=== PATIENT | female | born 1945 | race Caucasian/White ===

== ENCOUNTER 2023-05-30 16:02 | Emergency (ER) | payer OTHER, SELFPAY ==
[2023-05-30 16:11] VITALS: BP 166/63; PULSE 62; RESP 16; TEMP 37; O2SAT 97
--- NOTE | 2023-05-30 16:33 | ED.FALL ---
HPI - Fall General Chief Complaint: Fall/Minor Trauma Stated Complaint: fall, head lac Time Seen by Provider: 05/30/23 16:03 History of Present Illness HPI Narrative: This 77-year-old female comes in with a laceration to her right occipital region. She stood up without her walker and lost her balance and fell onto her right side. She did bump her head and her right hip. She did not have loss of consciousness. She does not describe any headache. She was able to get up with assistance. She has a 2 cm linear laceration in in the right occipital region. She does not have any neck pain. She has some mild discomfort in her right hip region but has full range of motion. Related Data Home Medications Medication Instructions Recorded Confirmed acetaminophen 325 mg tablet 650 mg PO BID 05/30/23 05/30/23 (Tylenol) ascorbic acid (vitamin C) 500 mg 1,000 mg PO BID 05/30/23 05/30/23 capsule aspirin 81 mg tablet,delayed 81 mg PO BID 05/30/23 05/30/23 release (Adult Aspirin Regimen) atorvastatin 80 mg tablet 80 mg PO DAILY 05/30/23 05/30/23 cholecalciferol (vitamin D3) 25 25 mcg PO DAILY 05/30/23 05/30/23 mcg (1,000 unit) capsule folic acid 1 mg tablet 1,000 mcg PO DAILY 05/30/23 05/30/23 hydroxychloroquine 200 mg tablet 200 mg PO DAILY 05/30/23 05/30/23 levothyroxine 88 mcg tablet 88 mcg PO DAILY 05/30/23 05/30/23 (Euthyrox) lisinopril 2.5 mg tablet 2.5 mg PO DAILY 05/30/23 05/30/23 methotrexate 2.5 mg/mL oral 15 mg PO DAILY 05/30/23 05/30/23 solution metoprolol succinate 25 mg capsule 25 mg PO DAILY 05/30/23 05/30/23 sprinkle, ext. release 24 hr ([place]spargo Sprinkle) nitroglycerin 0.4 mg sublingual 0.4 mg sublingual Q5-15M PRN 05/30/23 05/30/23 tablet nystatin 100,000 unit/gram topical 1 applic topical DAILY 05/30/23 05/30/23 powder ([facility]) oxybutynin chloride 15 mg 15 mg PO DAILY 05/30/23 05/30/23 tablet,extended release 24 hr pantoprazole 40 mg tablet,delayed 40 mg PO DAILY 05/30/23 05/30/23 release prednisone 2.5 mg tablet 2.5 mg PO DAILY 05/30/23 05/30/23 Allergies Allergy/AdvReac Type Severity Reaction Status Date / Time amoxicillin Allergy Unknown Verified 05/30/23 16:11 Review of Systems Status of ROS: Reports: 10 or more systems reviewed and unremarkable except as noted in History and below Narrative: Constitutional: No fevers, no weight gain or loss. Eyes: No discharge. No vision changes. HENT: No congestion, no sore throat, no ear pain. Cardiovascular: No chest pain, no palpitations. Respiratory: No shortness of breath, no wheezes, no cough. Gastrointestinal: No abdominal pain, no vomiting, no diarrhea. Genitourinary: No dysuria, no hematuria. Musculoskeletal: Normal range of motion. Skin: No rashes, no pruritis. Neurological: No dizziness, weakness, sensory change, speech change. Endo/Heme/Allergies: No bruising or bleeding. No polydipsia. Pysch: no suicidality, no anxiety, no insomnia. All other systems reviewed and are negative. PFSH PFS Social History Smoking Status: Never smoker Do you use any of these nicotine containing products: None Second hand tobacco smoke exposure: No How often do you have a drink containing alcohol: never How often do you have six or more drinks on one occasion: Never AUDIT-C Alcohol total score: 0 Non-prescribed substance use: denies use service: No Exam Narrative: Exam Narrative: Constitutional: Well-developed, well-nourished, no acute distress. HEENT: 2 cm linear laceration in the right occipital region of her scalp. There is no underlying hematoma. Neck: Normal range of motion. Nontender. Supple. No midline tenderness when palpating along the spine. Heart: Intact distal pulses. Lungs: No chest discomfort. No wheezes, rhonchi, or rales. Abdomen: Nontender. Back: Normal range of motion. Extremities: Normal range of motion. No injury. Skin: Intact. No rash. Warm. No erythema or pallor. Neurologic: No altered sensation. No weakness. Alert and oriented. Psychiatric: No suicidality. No anxiety or depression. No insomnia. Nursing notes and vitals signs are reviewed. Const: Vital Signs, click to edit/add: Vital Signs - 24 hr 05/30/23 16:11 Temperature 98.6 F Pulse Rate [Pulse Oximeter] 62 Respiratory Rate 16 Blood Pressure [Ri ght Upper Arm] 166/63 H Pulse Oximetry 97 Oxygen Delivery Me thod Room Air Course Vital Signs Vital signs: Initial Vital Signs Temperature 98.6 F 05/30/23 16:11 Temperature Source Temporal Artery Scan 05/30/23 16:11 Pulse Rate 62 05/30/23 16:11 Respiratory Rate 16 05/30/23 16:11 Blood Pressure 166/63 H 05/30/23 16:11 Blood Pressure Mean 97 05/30/23 16:11 Blood Pressure Position Supine 05/30/23 16:11 Pulse Oximetry 97 05/30/23 16:11 Oxygen Delivery Method Room Air 05/30/23 16:11 Vital Signs Temperature 98.6 F 05/30/23 16:11 Pulse Rate 62 05/30/23 16:11 Respiratory Rate 16 05/30/23 16:11 Blood Pressure 166/63 H 05/30/23 16:11 Pulse Oximetry 97 05/30/23 16:11 Oxygen Delivery Method Room Air 05/30/23 16:11 Temperature 98.6 F 05/30/23 16:11 Pulse Rate 62 05/30/23 16:11 Respiratory Rate 16 05/30/23 16:11 Blood Pressure 166/63 H 05/30/23 16:11 Pulse Oximetry 97 05/30/23 16:11 Oxygen Delivery Method Room Air 05/30/23 16:11 MDM - Fall MDM Narrative Medical decision making narrative: This patient comes in with a laceration to her scalp because of a fall. She did not have loss of consciousness. She does not report any headache or neck pain. She has some mild discomfort in her right hip region but is able to ambulate. She does not have any pain when log-rolling her right leg or stressing her pelvis. She is able to raise each leg from the bed without difficulty. I did discuss imaging options with the patient but stated reassurances that she did not have loss of consciousness, has no headache, no vomiting, no neurologic deficit, no distracting injury, and no altered level of consciousness. She declined any imaging at this time. She does have a POLST where she specifies comfort cares only and is DNR DNI. The wound on her scalp was cleansed and explored to its base. It is about 2 cm in length and the skin edges are nicely approximated. I recommended Dermabond repair which was applied with excellent results. Instructions regarding wound care were given. Discharge Plan Discharge Clinical Impression: Laceration of scalp Patient Disposition: Home w/ Parent or Adult Condition: Stable Additional Instructions: Keep wound clean and dry. Okay to wash hair as needed. Increase activity as tolerated. Follow up with MD return if worsening. Prescriptions: No Action ascorbic acid (vitamin C) 500 mg capsule 1,000 mg PO BID acetaminophen [Tylenol] 325 mg tablet 650 mg PO BID aspirin [Adult Aspirin Regimen] 81 mg tablet,delayed release (DR/EC) 81 mg PO BID atorvastatin 80 mg tablet 80 mg PO DAILY folic acid 1 mg tablet 1,000 mcg PO DAILY hydroxychloroquine 200 mg tablet 200 mg PO DAILY levothyroxine [Euthyrox] 88 mcg tablet 88 mcg PO DAILY lisinopril 2.5 mg tablet 2.5 mg PO DAILY methotrexate 2.5 mg/mL solution 15 mg PO DAILY [place]sp[place] Sprinkle 25 mg capsule,sprinkle,ER 24hr 25 mg PO DAILY nitroglycerin 0.4 mg tablet, sublingual 0.4 mg sublingual Q5-15M PRN Rx Instructions: do not exceed 3 doses per episode nystatin [Nyamyc] 100,000 unit/gram powder 1 applic topical DAILY oxybutynin chloride 15 mg tablet extended release 24hr 15 mg PO DAILY pantoprazole 40 mg tablet,delayed release (DR/EC) 40 mg PO DAILY prednisone 2.5 mg tablet 2.5 mg PO DAILY cholecalciferol (vitamin D3) 25 mcg (1,000 unit) capsule 25 mcg PO DAILY Stand Alone Forms: [employer] [facility] Info Instructions
--- NOTE | 2023-05-30 17:49 | ED.NURSE ---
Latanya KRUGER called for report on pt. Update given: no restrictions or changes to patient's current care plan at home.
== END 2023-05-30 17:42 | disposition home or self-care (01) ==
LOC: ED 16:59
PROVIDERS: Emergency Provider Emergency Medicine Emergency Medical Services
DX: S01.01XA Laceration without foreign body of scalp, initial encounter (principal); W01.10XA Fall on same level from slipping, tripping and stumbling with subsequent striking against unspecified object, initial encounter
CPT/HCPCS: 12001; 99283; 99284

== ENCOUNTER 2024-06-18 10:48 | Inpatient (IN) | payer OTHER, SELFPAY ==
[2024-06-18] VITALS (35 sets, daily range): BP systolic 92–127; BP diastolic 43–87; PULSE 57–72; RESP 12–25; TEMP 36.4–37.4; O2SAT 92–919; BMI 22.0; BMI 24.3
--- NOTE | 2024-06-18 11:13 | ED_ITS ---
HPI - Extremity Injury (Lower) General Time Seen by Provider: 11:13 Date Seen: 06/18/24 Chief Complaint: Extremity Pain/Injury, Lower Stated Complaint: Fall Time Seen by Provider: 06/18/24 11:12 Source: patient and RN notes reviewed Mode of arrival: ambulatory Limitations: no limitations History of Present Illness HPI Narrative: Christina is a very pleasant 78-year-old female with history of hyperlipidemia hypothyroidism hypertension who comes to the emergency room for evaluation regarding right hip pain. Christina states she and her were getting ready to go to the [facility] for breakfast. She notes that the shoes that she has are too big and she tripped than them when 1 of them stuck to the floor. She fell onto her right hip and since that time has had a hard time bearing weight. When she is at rest she has minimal discomfort. She has no numbness or tingling distally. She also hit her elbow but she is able to move that without difficulty. Denied hitting her head today. Christina denies any recent illness, cough cold congestion or chest pain. She does not smoke. Alcohol use is occasional. According to records she is on prednisone daily. Related Data Home Medications ?Medication ?Instructions ?Recorded ?Confirmed acetaminophen 325 mg tablet 650 mg PO BID 05/30/23 06/18/24 (Tylenol) ascorbic acid (vitamin C) 500 mg 1,000 mg PO BID 05/30/23 06/18/24 capsule aspirin 81 mg tablet,delayed 81 mg PO BID 05/30/23 06/18/24 release (Adult Aspirin Regimen) atorvastatin 80 mg tablet 80 mg PO DAILY 05/30/23 06/18/24 cholecalciferol (vitamin D3) 25 25 mcg PO DAILY 05/30/23 06/18/24 mcg (1,000 unit) capsule folic acid 1 mg tablet 2 mg PO DAILY 05/30/23 06/18/24 hydroxychloroquine 200 mg tablet 200 mg PO DAILY 05/30/23 06/18/24 levothyroxine 88 mcg tablet 88 mcg PO DAILY 05/30/23 06/18/24 (Euthyrox) lisinopril 2.5 mg tablet 2.5 mg PO DAILY 05/30/23 06/18/24 nitroglycerin 0.4 mg sublingual 0.4 mg sublingual Q5-15M PRN 05/30/23 06/18/24 tablet nystatin 100,000 unit/gram topical 1 applic topical BID PRN 05/30/23 06/18/24 powder ([facility]) oxybutynin chloride 15 mg 15 mg PO DAILY 05/30/23 06/18/24 tablet,extended release 24 hr pantoprazole 40 mg tablet,delayed 40 mg PO DAILY 05/30/23 06/18/24 release prednisone 2.5 mg tablet 2.5 mg PO DAILY 05/30/23 06/18/24 alendronate 70 mg tablet 70 mg PO .Friday06/18/24 06/18/24 methotrexate sodium 2.5 mg tablet 15 mg PO .Friday06/18/24 06/18/24 metoprolol succinate 25 mg 12.5 mg PO DAILY 06/18/24 06/18/24 tablet,extended release 24 hr Allergies Allergy/AdvReac Type Severity Reaction Status Date / Time amoxicillin Allergy Unknown Verified 05/30/23 16:11 Review of Systems Status of ROS: Reports: 10 or more systems reviewed and unremarkable except as noted in History and below Const: Denies: fever or chills Eyes: Denies: change in vision ENMT: Denies: throat pain, neck pain or nasal congestion Cardio: Denies: chest pain, palpitations, edema, swelling of feet/ankles, lightheadedness or shortness of breath with exertion Resp: Denies: shortness of breath or cough GI: Denies: abdominal pain, nausea or vomiting : Denies: painful urination Musculo: Reports: extremity pain (Right hip); Denies: back pain, neck pain or extremity swelling Neuro: Denies: headache PFSH PFSH Medical History Closed fracture of left femur ?S72.92XA - Unspecified fracture of left femur, initial encounter for closed fracture (ICD-10) Incontinence ?R32 - Unspecified urinary incontinence (ICD-10) Primary hypothyroidism ?E03.9 - Hypothyroidism, unspecified (ICD-10) Hyperlipidemia ?E78.5 - Hyperlipidemia, unspecified (ICD-10) Essential hypertension ?I10 - Essential (primary) hypertension (ICD-10) Seronegative rheumatoid arthritis ?M06.00 - Rheumatoid arthritis without rheumatoid factor, unspecified site (ICD-10) Coronary artery disease ?I25.10 - Atherosclerotic heart disease of [place] coronary artery without angina pectoris (ICD-10) Gastroesophageal reflux disease ?K21.9 - Gastro-esophageal reflux disease without esophagitis (ICD-10) Surgical History History of appendectomy ?Z90.49 - Acquired absence of other specified parts of digestive tract (ICD- 10) History of carpal tunnel surgery of left wrist ?Z98.890 - Other specified postprocedural states (ICD-10) History of vaginal hysterectomy ?Z90.710 - Acquired absence of both cervix and uterus (ICD-10) History of coronary artery stent placement ?Z95.5 - Presence of coronary angioplasty implant and graft (ICD-10) Family History Mother Colon cancer Father Heart disease Social History What is your current living situation?: I presently have a place to live Problems where you live: no known problems Problems where you live details: na In the past 12 months, utilities in danger of being shut off: no In past 12 months, lack of transportation kept you from medical appts, meetings, work, or getting things needed for daily living: no In the past 12 mos, have been you worried that your food would run out before you had money to buy more?: often true In the past 12 mos, the food you bought just didn't last and you didn't have money to buy more?: often true Highest level of school completed/degree received: 12th grade, no diploma Smoking Status: Never smoker Do you use any of these nicotine containing products: None Second hand tobacco smoke exposure: No How often do you have a drink containing alcohol: monthly or less How often do you have six or more drinks on one occasion: Never AUDIT-C Alcohol total score: 1 Non-prescribed substance use: denies use Caffeine: No How often does anyone, including family, friends and others, physically hurt you : never How often does anyone, including family, friends and others, insult or talk down to you: never How often does anyone, including family, friends and others, threaten you with harm: never How often does anyone, including family, friends and others, scream or curse at you: never service: No Exam Narrative: Exam Narrative: Alert and oriented. No acute distress. Very pleasant. Appropriate mentation. EOM is full. Face symmetrical. Head is atraumatic normocephalic. Tongue is midline with moist lips. Neck is supple. No midline tenderness. Range of motion full. Heart with regular rate and rhythm. Lungs are clear bilaterally. Abdomen soft nontender. Pelvis is stable. Patient has tenderness noted over the greater trochanter and upper thigh on the right. I do not note any ecchymosis or skin changes. She is able to move her leg distally. Her ankles are without swelling. Good pedal pulses. Her right elbow shows a superficial abrasion that is hemostatic. Full range of motion with flexion, extension, supination, pronation without difficulty. Const: Vital Signs, click to edit/add: Vital Signs - 24 hr 06/18/24 10:54 06/18/24 11:32 06/18/24 11:33 Temperature 98.5 F Pulse Rate 62 64 Pulse Rate [Pulse Oximeter] 59 L Respiratory Rate 20 14 Blood Pressure 101/63 Blood Pressure [Ri ght Upper Arm] 127/66 Pulse Oximetry 94 93 95 Oxygen Delivery Me thod Room Air Room Air 06/18/24 11:56 06/18/24 12:00 06/18/24 12:02 Temperature Pulse Rate 72 65 60 Pulse Rate [Pulse Oximeter] Respiratory Rate 16 Blood Pressure 106/87 Blood Pressure [Ri ght Upper Arm] Pulse Oximetry 95 94 Oxygen Delivery Me thod Room Air 06/18/24 12:25 06/18/24 12:30 06/18/24 12:32 Temperature Pulse Rate 60 57 L 60 Pulse Rate [Pulse Oximeter] Respiratory Rate 14 Blood Pressure 106/79 Blood Pressure [Ri ght Upper Arm] Pulse Oximetry 93 98 95 Oxygen Delivery Me thod Room Air 06/18/24 12:45 06/18/24 13:00 06/18/24 13:05 Temperature Pulse Rate 64 69 66 Pulse Rate [Pulse Oximeter] Respiratory Rate Blood Pressure Blood Pressure [Ri ght Upper Arm] Pulse Oximetry 94 95 Oxygen Delivery Me thod 06/18/24 13:23 Temperature Pulse Rate 72 Pulse Rate [Pulse Oximeter] Respiratory Rate 14 Blood Pressure 104/65 Blood Pressure [Ri ght Upper Arm] Pulse Oximetry 919 H Oxygen Delivery Me thod Room Air Documenting provider has reviewed patient's vital signs: yes Course Course ED Course: At this time Christina presents after a fall. No evidence of head or neck injury. There were no prodromal symptoms to this event. Will obtain x-rays of the pelvis right hip and right femur. Reevaluation(s) Reevaluation #1: Patient continues to do well. Unfortunately x-ray by my read shows a right femoral neck fracture. Will add chest x-ray and labs to include CBC and comprehensive on to orders. Also adding anEKG. Reevaluation #2: I did speak with Rand AVILA with Ortho so that they are aware of this patient. Vital Signs Vital signs: Initial Vital Signs Temperature 98.5 F 06/18/24 10:54 Temperature Source Oral 06/18/24 10:54 Pulse Rate 59 L 06/18/24 10:54 Pulse Rhythm Regular 06/18/24 10:54 Respiratory Rate 20 06/18/24 10:54 Blood Pressure 127/66 06/18/24 10:54 Blood Pressure Mean 86 06/18/24 10:54 Blood Pressure Position Supine 06/18/24 10:54 Pulse Oximetry 94 06/18/24 10:54 Oxygen Delivery Method Room Air 06/18/24 10:54 Vital Signs Temperature 98.5 F 06/18/24 10:54 Pulse Rate 59 L 06/18/24 10:54 Respiratory Rate 20 06/18/24 10:54 Blood Pressure 127/66 06/18/24 10:54 Pulse Oximetry 94 06/18/24 10:54 Oxygen Delivery Method Room Air 06/18/24 10:54 Temperature 99.3 F 06/18/24 15:00 Pulse Rate 69 06/18/24 15:00 Respiratory Rate 18 06/18/24 15:00 Blood Pressure 113/56 L 06/18/24 15:00 Pulse Oximetry 96 06/18/24 15:00 Oxygen Delivery Method Room Air 06/18/24 15:00 Medications Administered Medications: Generic Name Dose Route Start Last Admin Trade Name Freq PRN Reason Stop Dose Admin Sodium Chloride 1,000 mls @ 75 mls/hr 06/18/24 13:44 06/18/24 14:20 0.9 % Sodium Chloride 1000 Ml IV 75 mls/hr .[id number] FERMIN Administration Potassium Chloride 10 meq/ 106 mls @ 106 mls/hr 06/18/24 14:30 06/18/24 15:39 Lidocaine HCl 1 ml/ Dextrose IVPB 06/18/24 16:59 106 mls/hr Q90M FERMIN Administration Discontinued Medications Generic Name Dose Route Start Last Admin Trade Name Pritesh PRN Reason Stop Dose Admin Hydrocortisone Sodium Succinate 100 mg 06/18/24 14:30 06/18/24 14:21 Hydrocortisone Sod Succinate 50 Mg/Ml Inj IVP 06/18/24 14:31 100 mg ONCE ONE Administration MDM - Extremity Injury (Lower) MDM Narrative Medical decision making narrative: 1. Fall -no prodromal symptoms. No evidence of head injury or neck pain. No loss of consciousness. 2. Right hip fracture-femoral neck fracture noted on x-ray. Pelvis and femur otherwise without injury. Will admit patient for orthopedic consult. No pain medication required at this time. 3. Chronic steroid use-patient noted to use prednisone 2.5 mg daily. 4. Disposition-admit to the floor under the care of Addendum: EKG shows sinus rhythm but there are T-wave inversions in the inferior lateral leads. Patient does have history of cardiac disease in the past with stent placement. We do not have any previous EKGs for comparison. Patient denies any chest pain. Have added troponin on to previous labs. Addendum: Troponin negative. Medical Records Attestation: I reviewed the patient's medical records. Lab Data Attestation: I reviewed the patient's lab results. Labs: Lab Results 06/18/24 06/18/24 Range/Units 12:30 12:53 WBC 13.90 H (4.50-11.00) K/uL RBC 3.65 L (4.00-5.20) m/uL Hgb 12.1 (12.0-16.0) gm/dL Hct 37.6 (33.0-51.0) % MCV 103 H (80-100) fL MCH 33 (26-34) pg MCHC 32 (32-36) gm/dL RDW Coeff of Latonya 14.3 (11.5-15.5) % Plt Count 151 (140-440) K/uL Neut % (Auto) 90.3 H (42.0-72.0) % Lymph % (Auto) 6.0 L (20-44) % [place] % (Auto) 3.2 (0.0-11.0) % Eos % (Auto) 0.2 (0.0-7.0) % Baso % (Auto) 0.1 (0.0-3.0) % Neut # (Auto) 12.60 H (1.7-7.0) K/uL Lymph # (Auto) 0.80 L (0.90-2.90) K/uL [place] # (Auto) 0.40 (0.00-0.90) K/UL Eos # (Auto) 0.00 (0.00-0.50) K/uL Baso # (Auto) 0.00 (0.00-0.30) K/uL Abs Immat Gran (auto) 0.00 (0.00-0.30) K/uL Imm/Tot Granulo (auto) 0.2 % Sodium 137 (135-149) mmol/L Potassium 3.2 L (3.6-5.1) mmol/L Chloride 102 (96-114) mmol/L Carbon Dioxide 30 (20-32) mmol/L Anion Gap 5 L (7-15) mEq/L BUN 20 (7-30) mg/dL Creatinine 0.6 (0.5-1.5) mg/dL Estimated Creat Clear 38.75 Estimated GFR 91 ml/min Glucose 113 (60-115) mg/dL Calcium 9.1 (8.4-10.6) mg/dL Troponin I < 0.01 L (0.01-0.04) ng/mL Lab Acknowledgement Test Added Imaging Data Femur x-ray: Attestation: I have reviewed the pertinent imaging results. My impression: Obvious fracture of the femoral neck. Radiologist's impression: There is a transcervical type fracture of the right femoral neck with approximately 12 mm of displacement and proximal migration of the distal fracture fragment along with ventral apex angulation of fracture fragments. No additional evidence of fracture. Degenerative changes of the right hip. No radiopaque foreign body evident in the soft tissues. IMPRESSION: Displaced fracture of the right femoral neck. Pelvis x-ray: Attestation: I have reviewed the pertinent imaging results. My impression: I do not note any acute pelvic fractures. Radiologist's impression: Displaced transcervical type fracture of the right femoral neck is again demonstrated. No additional evidence of fracture. Left hip arthroplasty as imaged appears intact. Degenerative changes of the visualized lumbar spine. Right hip degenerative changes. Apparent bone demineralization. Vascular calcifications. Soft tissues as imaged are otherwise unremarkable. IMPRESSION: Displaced right femoral neck fracture. Right hip x-ray: Attestation: I have reviewed the pertinent imaging results. My impression: Right hip fracture Radiologist's impression: INDINGS: There is a transcervical type fracture of the right femoral neck with approximately 12 mm of displacement and proximal migration of the distal fracture fragment along with ventral apex angulation of fracture fragments. No additional evidence of fracture. Degenerative changes of the right hip. No radiopaque foreign body evident in the soft tissues. IMPRESSION: Displaced fracture of the right femoral neck. ECG Data Attestation: I personally reviewed and interpreted this ECG as follows: ECG interpretation date: 06/18/24 Interpretation: EKG by my read shows sinus rhythm. Flipped T-waves throughout most of the EKG. However normal QT and AK intervals. Discharge Plan Discharge Clinical Impression: Closed right hip fracture Patient Disposition: Admitted As Observation Condition: Improved
--- NOTE | 2024-06-18 11:19 | CRLHL7_ITS ---
For Patients: As a result of the Cures Act, medical imaging exams and procedure reports are released immediately into your electronic medical record. You may view this report before your referring provider. If you have questions, please contact your health care provider. INDICATION: Fall with right hip pain. TECHNIQUE: Pelvis one view. COMPARISON: Right femur same day. FINDINGS: Displaced transcervical type fracture of the right femoral neck is again demonstrated. No additional evidence of fracture. Left hip arthroplasty as imaged appears intact. Degenerative changes of the visualized lumbar spine. Right hip degenerative changes. Apparent bone demineralization. Vascular calcifications. Soft tissues as imaged are otherwise unremarkable. IMPRESSION: Displaced right femoral neck fracture. Dictated by Dat Mak MD @ 06/18/2024 12:15:00 PM (Electronically Signed)
--- NOTE | 2024-06-18 11:19 | CRLHL7_ITS ---
For Patients: As a result of the Cures Act, medical imaging exams and procedure reports are released immediately into your electronic medical record. You may view this report before your referring provider. If you have questions, please contact your health care provider. INDICATION: Fall. Pain. TECHNIQUE: Right femur four views. COMPARISON: None. FINDINGS: There is a transcervical type fracture of the right femoral neck with approximately 12 mm of displacement and proximal migration of the distal fracture fragment along with ventral apex angulation of fracture fragments. No additional evidence of fracture. Degenerative changes of the right hip. No radiopaque foreign body evident in the soft tissues. IMPRESSION: Displaced fracture of the right femoral neck. Dictated by Dat Mak MD @ 06/18/2024 12:13:18 PM (Electronically Signed)
--- NOTE | 2024-06-18 12:07 | CRLHL7_ITS ---
For Patients: As a result of the Cures Act, medical imaging exams and procedure reports are released immediately into your electronic medical record. You may view this report before your referring provider. If you have questions, please contact your health care provider. INDICATION: : Hip fracture COMPARISON: None TECHNIQUE: One view(s) of the chest FINDINGS: The cardiomediastinal silhouette and pulmonary vasculature are unremarkable. There is no focal airspace consolidation, pleural effusion, or pneumothorax. No displaced fractures. Dextroscoliotic curvature of the thoracic spine. IMPRESSION: No acute cardiopulmonary process or acute traumatic injury. Dictated by Anthony Cobb MD @ 06/18/2024 12:26:09 PM (Electronically Signed)
--- NOTE | 2024-06-18 12:29 | ED.NURSE ---
Spoke with RN at [facility], update given to RN on pt status. She states understanding.
[2024-06-18 12:38] LABS: Basophils Percent Auto 0.1 % (0.0-3.0); Eosinophils Percent Auto 0.2 % (0.0-7.0); Hematocrit 37.6 % (33.0-51.0); Hemoglobin* 12.1 gm/dL (12.0-16.0); Immature Granulocytes Pct Auto 0.2 %; Mean Corpuscular HGB Conc 32 gm/dL (32-36); Mean Corpuscular Hemoglobin 33 pg (26-34); Mean Corpuscular Volume 103 fL (80-100); Monocytes Percent Auto 3.2 % (0.0-11.0); Neutrophils Percent Auto 90.3 % (42.0-72.0); Platelet Count* 151 K/uL (140-440); RDW Coefficient of Variation % 14.3 % (11.5-15.5); Red Blood Count 3.65 m/uL (4.00-5.20)
[2024-06-18 12:44] LABS: Slide Review Reflex No
[2024-06-18 12:53] LABS: Chloride* 102 mmol/L (96-114); Potassium* 3.2 mmol/L (3.6-5.1); Sodium* 137 mmol/L (135-149)
[2024-06-18 12:56] LABS: Anion Gap 5 mEq/L (7-15); Blood Urea Nitrogen* 20 mg/dL (7-30); Carbon Dioxide* 30 mmol/L (20-32); Creatinine* 0.6 mg/dL (0.5-1.5); Est. Creatinine Clearance* 38.75; Estimated Glomerular Filt Rate 91 ml/min
[2024-06-18 12:57] LABS: Calcium* 9.1 mg/dL (8.4-10.6); Glucose* 113 mg/dL (60-115)
[2024-06-18 13:23] LABS: Troponin I* < 0.01 ng/mL (0.01-0.04)
--- NOTE | 2024-06-18 13:53 | PM.IMHP1 ---
Hospitalist- H&P: HPI History of Present Illness Date Seen: 06/18/24 Chief complaint: Right hip pain status post fall from standing Narrative: Christina Eckert is a 78 year old was in her usual state of health until around 8:30 this morning when she fell from the standing state in her home with right hip pain since. Did not strike her head. Did not have loss of consciousness. No bleeding of any sort. Was in her home getting ready to leave the home for breakfast when this happened. In our emergency department an x-ray demonstrated a new displaced right femoral neck fracture. Orthopedic surgeon on-call reviewed and agreed to proceed with surgery later today. Patient does take aspirin 81 mg once daily. She last ate 2 pieces of banana bread shortly before the accident happened around 8:30 this morning. 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 Review of Systems Status of ROS: Reports: 10 or more systems reviewed and unremarkable except as noted in History and below Narrative: Denies chest heaviness, pressure, tightness, or pain. Denies cough, dyspnea at rest, paroxysmal nocturnal dyspnea, orthopnea, or even dyspnea with exertion. Denies syncope or near-syncope. Denies orthostasis or lightheadedness. Denies nausea or vomiting. Denies dysphagia, odynophagia. Denies diarrhea or constipation. Denies abdominal pain. No fevers, rigors, diaphoresis. No recent travel, other trauma, or blood loss of any sort. Does take her immunosuppressive therapy regularly including prednisone 2 point mg daily, hydroxychloroquine 200 mg daily, and methotrexate 15 mg every Friday once weekly. Denies weight gain or weight loss. No recent illness. Generally happy and content. Designates her , Todd, as her power of clearing inspector for health should that be required. Adamantly requests DNR DNI resuscitation status in the event of cardiopulmonary demise. Primary care physician is Dr. Jacqueline Jack, [facility], [facility]. [facility] Medical History Closed fracture of left femur ?S72.92XA - Unspecified fracture of left femur, initial encounter for closed fracture (ICD-10) Incontinence ?R32 - Unspecified urinary incontinence (ICD-10) Primary hypothyroidism ?E03.9 - Hypothyroidism, unspecified (ICD-10) Hyperlipidemia ?E78.5 - Hyperlipidemia, unspecified (ICD-10) Essential hypertension ?I10 - Essential (primary) hypertension (ICD-10) Seronegative rheumatoid arthritis ?M06.00 - Rheumatoid arthritis without rheumatoid factor, unspecified site (ICD-10) Coronary artery disease ?I25.10 - Atherosclerotic heart disease of [place] coronary artery without angina pectoris (ICD-10) Gastroesophageal reflux disease ?K21.9 - Gastro-esophageal reflux disease without esophagitis (ICD-10) Surgical History History of appendectomy ?Z90.49 - Acquired absence of other specified parts of digestive tract (ICD-10) History of carpal tunnel surgery of left wrist ?Z98.890 - Other specified postprocedural states (ICD-10) History of vaginal hysterectomy ?Z90.710 - Acquired absence of both cervix and uterus (ICD-10) History of coronary artery stent placement ?Z95.5 - Presence of coronary angioplasty implant and graft (ICD-10) Family History Mother Colon cancer Father Heart disease Social History Smoking Status: Never smoker Do you use any of these nicotine containing products: None Second hand tobacco smoke exposure: No How often do you have a drink containing alcohol: monthly or less How often do you have six or more drinks on one occasion: Never AUDIT-C Alcohol total score: 1 Non-prescribed substance use: denies use service: No Meds Home Medications and Allergies Home Medications ?Medication ?Instructions ?Recorded ?Confirmed ?Type acetaminophen 325 mg tablet 650 mg PO BID 05/30/23 06/18/24 History (Tylenol) ascorbic acid (vitamin C) 500 mg 1,000 mg PO BID 05/30/23 06/18/24 History capsule aspirin 81 mg tablet,delayed 81 mg PO BID 05/30/23 06/18/24 History release (Adult Aspirin Regimen) atorvastatin 80 mg tablet 80 mg PO DAILY 05/30/23 06/18/24 History cholecalciferol (vitamin D3) 25 25 mcg PO DAILY 05/30/23 06/18/24 History mcg (1,000 unit) capsule folic acid 1 mg tablet 2 mg PO DAILY 05/30/23 06/18/24 History hydroxychloroquine 200 mg tablet 200 mg PO DAILY 05/30/23 06/18/24 History levothyroxine 88 mcg tablet 88 mcg PO DAILY 05/30/23 06/18/24 History (Euthyrox) lisinopril 2.5 mg tablet 2.5 mg PO DAILY 05/30/23 06/18/24 History nitroglycerin 0.4 mg sublingual 0.4 mg sublingual Q5-15M PRN 05/30/23 06/18/24 History tablet nystatin 100,000 unit/gram topical 1 applic topical BID PRN 05/30/23 06/18/24 History powder (Nyamyc) oxybutynin chloride 15 mg 15 mg PO DAILY 05/30/23 06/18/24 History tablet,extended release 24 hr pantoprazole 40 mg tablet,delayed 40 mg PO DAILY 05/30/23 06/18/24 History release prednisone 2.5 mg tablet 2.5 mg PO DAILY 05/30/23 06/18/24 History alendronate 70 mg tablet 70 mg PO .Friday06/18/24 06/18/24 History methotrexate sodium 2.5 mg tablet 15 mg PO .Friday06/18/24 06/18/24 History metoprolol succinate 25 mg 12.5 mg PO DAILY 06/18/24 06/18/24 History tablet,extended release 24 hr Allergies Allergy/AdvReac Type Severity Reaction Status Date / Time amoxicillin Allergy Unknown Verified 05/30/23 16:11 Exam Narrative: Exam Narrative: Examined patient in the emergency department. She is laying on the exam table and appears comfortable when she is laying still. Vision and hearing are adequate. Alert and oriented x4. Friendly, articulate, cooperative. External auditory canals and tympanic membranes are normal. Midline nasal septum. Dentition in poor weak pair. Moist buccal mucosa. Conjugate gaze. Pupils equally round and reactive to light and accommodation. Midline trachea. Normal thyroid. No JVD or hepatojugular reflux. Head neck lymph nodes are negative to palpation. Lungs are clear to auscultation without wheezing, rhonchi, or rales. No CVA tenderness to thumping of her back. Heart tones with regular rhythm, normal S1-S2. Grade 2/6 low-pitched systolic murmur left lower sternal border. PMI not laterally displaced. Abdomen is thin with active bowel sounds, soft, nontender. No rebound or guarding. Right lower extremity is about a cm to 2 cm shorter than the left. No edema. Capillary refill less than 3 seconds in upper and lower extremities. No focal motor neurologic deficits. Const: Vital Signs, click to edit/add: Vital Signs - 24 hr 06/18/24 10:54 06/18/24 11:32 06/18/24 11:33 Temperature 98.5 F Pulse Rate 62 64 Pulse Rate [Pulse Oximeter] 59 L Respiratory Rate 20 14 Blood Pressure 101/63 Blood Pressure [Ri ght Upper Arm] 127/66 Pulse Oximetry 94 93 95 Oxygen Delivery Me thod Room Air Room Air 06/18/24 11:56 06/18/24 12:00 06/18/24 12:02 Temperature Pulse Rate 72 65 60 Pulse Rate [Pulse Oximeter] Respiratory Rate 16 Blood Pressure 106/87 Blood Pressure [Ri ght Upper Arm] Pulse Oximetry 95 94 Oxygen Delivery Me thod Room Air 06/18/24 12:25 06/18/24 12:30 06/18/24 12:32 Temperature Pulse Rate 60 57 L 60 Pulse Rate [Pulse Oximeter] Respiratory Rate 14 Blood Pressure 106/79 Blood Pressure [Ri ght Upper Arm] Pulse Oximetry 93 98 95 Oxygen Delivery Me thod Room Air 06/18/24 12:45 06/18/24 13:00 06/18/24 13:05 Temperature Pulse Rate 64 69 66 Pulse Rate [Pulse Oximeter] Respiratory Rate Blood Pressure Blood Pressure [Ri ght Upper Arm] Pulse Oximetry 94 95 Oxygen Delivery Me thod 06/18/24 13:23 Temperature Pulse Rate 72 Pulse Rate [Pulse Oximeter] Respiratory Rate 14 Blood Pressure 104/65 Blood Pressure [Ri ght Upper Arm] Pulse Oximetry 919 H Oxygen Delivery Me thod Room Air Hospitalist - H&P: Result Labs Labs: Short CBC 06/18/24 Range/Units 12:30 WBC 13.90 H (4.50-11.00) K/uL Hgb 12.1 (12.0-16.0) gm/dL Hct 37.6 (33.0-51.0) % Plt Count 151 (140-440) K/uL BMP 06/18/24 12:30 Sodium 137 Potassium 3.2 L Chloride 102 Carbon Dioxide 30 BUN 20 Creatinine 0.6 Glucose 113 Calcium 9.1 Cardiac Enzymes 06/18/24 Range/Units 12:30 Troponin I < 0.01 L (0.01-0.04) ng/mL ECG Attestation: I personally reviewed and interpreted this ECG as follows: ECG interpretation date: 06/18/24 Interpretation: Normal sinus rhythm. Nonspecific T-wave abnormalities. Imaging Chest x-ray: Attestation: I have reviewed the pertinent imaging results. Radiologist's impression: No acute cardiopulmonary processes noted. Pelvic x-ray: Attestation: I have reviewed the pertinent imaging results. Radiologist's impression: Displaced right femoral neck fracture Right hip x-ray: Radiologist's impression: Displaced right femoral neck fracture Assessment and Plan Assessment and plan (1) Closed right hip fracture: Problem comment: 06/18/2024: Displaced right femoral neck fracture s/p fall from standing state Reviewed with Dr. Meredith, emergency Department, and Rand Funez, physician assistant brand manager for orthopedic surgery. Patient ready for surgical repair when Orthopedic surgery is ready. Status: Acute (2) Seronegative rheumatoid arthritis: Problem comment: 06/18/2024: Single dose of hydrocortisone 100 mg IV. Continue with prednisone 2.5 mg daily. Hold methotrexate. Continue with hydroxychloroquine. Status: Acute (3) Coronary artery disease: Problem comment: h/o AMI and RCA stent 2009 Status: Acute Plan 1. Reviewed impression with patient. 2. Discussed recommendations with patient. 3. Answered patient's questions are satisfaction. 4. Continue with supportive efforts. 5. Patient will proceed to the OR when Orthopedic surgery and anesthesia are ready. 6. NPO with IV fluids and analgesics and antiemetics as needed. Total Time Spent Total Time Spent: 70 minutes
[2024-06-18] MEDS: 0.9 % SODIUM CHLORIDE 1000 ml 1,000 ML 75 ML IV (14:20)
[2024-06-18] MEDS: HYDROCORTISONE SOD SUCCINATE 50 MG/ML inj 100 MG IVP (14:21)
--- NOTE | 2024-06-18 15:09 | PC.NURSE ---
Pt arrived to floor at 1326, alert oriented and vitally stable. Valencia catheter draining effectively.
--- NOTE | 2024-06-18 16:15 | CRLHL7_ITS ---
For Patients: As a result of the Century Cures Act, medical imaging exams and procedure reports are released immediately into your electronic medical record. You may view this report before your referring provider. If you have questions, please contact your health care provider. Indication: Intra op right bipolar hip hemiarthroplasty. Technique: Procedural fluoroscopy. One image saved. Fluoro time: 25.8 seconds. Comparison: Radiographs 06/18/2024. Findings/Impression: Images show placement of a bipolar right hip hemiarthroplasty. Dictated by Jassi You MD @ 06/21/2024 12:17:54 PM (Electronically Signed)
[2024-06-18] MEDS: LACTATED RINGERS 1000 ML 1,000 ML 35 ML IV (16:35)
--- NOTE | 2024-06-18 16:38 | CRLHL7_ITS ---
For Patients: As a result of the Cures Act, medical imaging exams and procedure reports are released immediately into your electronic medical record. You may view this report before your referring provider. If you have questions, please contact your health care provider. INDICATION: Right hip arthroplasty. TECHNIQUE: Pelvis and right hip 2 views. IMPRESSION: Hardware from a right hip arthroplasty is in satisfactory position. Bone alignment is normal. No sign of acute fracture. There are postoperative changes in the soft tissues. Grossly unremarkable left hip arthroplasty. Pelvic phleboliths. Dictated by Wilber Gtz MD @ 06/18/2024 11:21:04 PM (Electronically Signed)
--- NOTE | 2024-06-18 16:46 | P.ORCN_ITS ---
History of Present Illness HPI Date Seen: 06/18/24 Chief complaint: Right hip pain status post fall from standing Narrative: Christina is a pleasant 78 year old female who presents [facility] after a fall from a standing height at home resulting in right hip pain and inability to bear weight. X-rays here at the hospital revealed a right displaced femoral neck fracture. Orthopedics was consulted accordingly. Reportedly no loss of consciousness. Takes aspirin 81 mg once daily. She last ate 2 pieces of banana bread shortly before the accident happened around 8:30 this morning. 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 [facility] Medical History Closed fracture of left femur ?S72.92XA - Unspecified fracture of left femur, initial encounter for closed fracture (ICD-10) Incontinence ?R32 - Unspecified urinary incontinence (ICD-10) Primary hypothyroidism ?E03.9 - Hypothyroidism, unspecified (ICD-10) Hyperlipidemia ?E78.5 - Hyperlipidemia, unspecified (ICD-10) Essential hypertension ?I10 - Essential (primary) hypertension (ICD-10) Seronegative rheumatoid arthritis ?M06.00 - Rheumatoid arthritis without rheumatoid factor, unspecified site (ICD-10) Coronary artery disease ?I25.10 - Atherosclerotic heart disease of [place] coronary artery without angina pectoris (ICD-10) Gastroesophageal reflux disease ?K21.9 - Gastro-esophageal reflux disease without esophagitis (ICD-10) Surgical History History of appendectomy ?Z90.49 - Acquired absence of other specified parts of digestive tract (ICD- 10) History of carpal tunnel surgery of left wrist ?Z98.890 - Other specified postprocedural states (ICD-10) History of vaginal hysterectomy ?Z90.710 - Acquired absence of both cervix and uterus (ICD-10) History of coronary artery stent placement ?Z95.5 - Presence of coronary angioplasty implant and graft (ICD-10) Family History Mother Colon cancer Father Heart disease Social History What is your current living situation?: I presently have a place to live Problems where you live: no known problems Problems where you live details: na In the past 12 months, utilities in danger of being shut off: no In past 12 months, lack of transportation kept you from medical appts, meetings, work, or getting things needed for daily living: no In the past 12 mos, have been you worried that your food would run out before you had money to buy more?: often true In the past 12 mos, the food you bought just didn't last and you didn't have money to buy more?: often true Highest level of school completed/degree received: 12th grade, no diploma Smoking Status: Never smoker Do you use any of these nicotine containing products: None Second hand tobacco smoke exposure: No How often do you have a drink containing alcohol: monthly or less How often do you have six or more drinks on one occasion: Never AUDIT-C Alcohol total score: 1 Non-prescribed substance use: denies use Caffeine: No How often does anyone, including family, friends and others, physically hurt you : never How often does anyone, including family, friends and others, insult or talk down to you: never How often does anyone, including family, friends and others, threaten you with harm: never How often does anyone, including family, friends and others, scream or curse at you: never service: No Meds Home Medications and Allergies Home Medications ?Medication ?Instructions ?Recorded ?Confirmed ?Type acetaminophen 325 mg tablet 650 mg PO BID 05/30/23 06/18/24 History (Tylenol) ascorbic acid (vitamin C) 500 mg 1,000 mg PO BID 05/30/23 06/18/24 History capsule aspirin 81 mg tablet,delayed 81 mg PO BID 05/30/23 06/18/24 History release (Adult Aspirin Regimen) atorvastatin 80 mg tablet 80 mg PO DAILY 05/30/23 06/18/24 History cholecalciferol (vitamin D3) 25 25 mcg PO DAILY 05/30/23 06/18/24 History mcg (1,000 unit) capsule folic acid 1 mg tablet 2 mg PO DAILY 05/30/23 06/18/24 History hydroxychloroquine 200 mg tablet 200 mg PO DAILY 05/30/23 06/18/24 History levothyroxine 88 mcg tablet 88 mcg PO DAILY 05/30/23 06/18/24 History (Euthyrox) lisinopril 2.5 mg tablet 2.5 mg PO DAILY 05/30/23 06/18/24 History nitroglycerin 0.4 mg sublingual 0.4 mg sublingual Q5-15M PRN 05/30/23 06/18/24 History tablet nystatin 100,000 unit/gram topical 1 applic topical BID PRN 05/30/23 06/18/24 History powder (Nyamyc) oxybutynin chloride 15 mg 15 mg PO DAILY 05/30/23 06/18/24 History tablet,extended release 24 hr pantoprazole 40 mg tablet,delayed 40 mg PO DAILY 05/30/23 06/18/24 History release prednisone 2.5 mg tablet 2.5 mg PO DAILY 05/30/23 06/18/24 History alendronate 70 mg tablet 70 mg PO .Friday06/18/24 06/18/24 History methotrexate sodium 2.5 mg tablet 15 mg PO .Friday06/18/24 06/18/24 History metoprolol succinate 25 mg 12.5 mg PO DAILY 06/18/24 06/18/24 History tablet,extended release 24 hr Allergies Allergy/AdvReac Type Severity Reaction Status Date / Time amoxicillin Allergy Unknown Verified 05/30/23 16:11 Ortho Exam Narrative Exam Narrative: She is alert. Resting in the hospital bed supine. Comfortable. Cooperative with the exam. Her daughter is here in the room and augments the history. Right hip shows no lacerations, abrasions, or other cutaneous changes. Tender to palpation around the right lateral hip and pain in the right groin with any hip or knee range of motion. Neurologic intact in the superficial and deep peroneal as well as plantar distribution to sensory light touch and motor function. Palpable DP and PT pulse. Strength and stability about the right hip deferred. Gait and station also deferred. Const Vital Signs, click to edit/add: Vital Signs - 24 hr 06/18/24 10:54 06/18/24 11:32 06/18/24 11:33 Temperature 98.5 F Pulse Rate 62 64 Pulse Rate [Pulse Oximeter] 59 L Respiratory Rate 20 14 Blood Pressure 101/63 Blood Pressure [Left Arm] Blood Pressure [Right Upper Arm] 127/66 Pulse Oximetry 94 93 95 Oxygen Delivery Method Room Air Room Air 06/18/24 11:56 06/18/24 12:00 06/18/24 12:02 Temperature Pulse Rate 72 65 60 Pulse Rate [Pulse Oximeter] Respiratory Rate 16 Blood Pressure 106/87 Blood Pressure [Left Arm] Blood Pressure [Right Upper Arm] Pulse Oximetry 95 94 Oxygen Delivery Method Room Air 06/18/24 12:25 06/18/24 12:30 06/18/24 12:32 Temperature Pulse Rate 60 57 L 60 Pulse Rate [Pulse Oximeter] Respiratory Rate 14 Blood Pressure 106/79 Blood Pressure [Left Arm] Blood Pressure [Right Upper Arm] Pulse Oximetry 93 98 95 Oxygen Delivery Method Room Air 06/18/24 12:45 06/18/24 13:00 06/18/24 13:05 Temperature Pulse Rate 64 69 66 Pulse Rate [Pulse Oximeter] Respiratory Rate Blood Pressure Blood Pressure [Left Arm] Blood Pressure [Right Upper Arm] Pulse Oximetry 94 95 Oxygen Delivery Method 06/18/24 13:23 06/18/24 14:44 06/18/24 14:44 Temperature 98.0 F Pulse Rate 72 Pulse Rate [Pulse Oximeter] Respiratory Rate 14 18 18 Blood Pressure 104/65 Blood Pressure [Left Arm] Blood Pressure [Right Upper Arm] Pulse Oximetry 919 H 96 96 Oxygen Delivery Method Room Air Room Air Room Air 06/18/24 15:00 06/18/24 15:00 Temperature 99.3 F Pulse Rate Pulse Rate [Pulse Oximeter] 69 Respiratory Rate 18 18 Blood Pressure Blood Pressure [Left Arm] 113/56 L Blood Pressure [Right Upper Arm] Pulse Oximetry 96 96 Oxygen Delivery Method Room Air Room Air Results Labs Labs: Laboratory Results - last 48 hr 06/18/24 06/18/24 12:30 12:53 WBC 13.90 H RBC 3.65 L Hgb 12.1 Hct 37.6 MCV 103 H MCH 33 MCHC 32 RDW Coeff of Latonya 14.3 Plt Count 151 Neut % (Auto) 90.3 H Lymph % (Auto) 6.0 L Bates % (Auto) 3.2 Eos % (Auto) 0.2 Baso % (Auto) 0.1 Neut # (Auto) 12.60 H Lymph # (Auto) 0.80 L Bates # (Auto) 0.40 Eos # (Auto) 0.00 Baso # (Auto) 0.00 Abs Immat Gran (auto) 0.00 Imm/Tot Granulo (auto) 0.2 Sodium 137 Potassium 3.2 L Chloride 102 Carbon Dioxide 30 Anion Gap 5 L BUN 20 Creatinine 0.6 Estimated Creat Clear 38.75 Estimated GFR 91 Glucose 113 Calcium 9.1 Troponin I < 0.01 L Lab Acknowledgement Test Added Diagnostic results Additional Comments: AP pelvis as well as AP and lateral views of the right femur from [facility] dated 06/18/2024 were ordered by a different provider and reviewed by me. This demonstrates a displaced right femoral neck fracture in the subcapital region. There is shortening and external rotation to the femur otherwise. Of note, contralateral left side shows a cemented hemiarthroplasty in appropriate position. Assessment and Plan Assessment and plan (1) Closed right hip fracture: Problem comment: 06/18/2024: Displaced right femoral neck fracture s/p fall from standing state Reviewed with Dr. Meredith, emergency Department, and Rand Funez, physician bakery assistant for orthopedic surgery. Patient ready for surgical repair when Orthopedic surgery is ready. Status: Acute Total time spent: Total time spent is greater than 50% in coordination of care (as documented) at patient's floor/unit and/or counseling patient: (2) Seronegative rheumatoid arthritis: Problem comment: 06/18/2024: Single dose of hydrocortisone 100 mg IV. Continue with prednisone 2.5 mg daily. Hold methotrexate. Continue with hydroxychloroquine. Status: Acute Total time spent: Total time spent is greater than 50% in coordination of care (as documented) at patient's floor/unit and/or counseling patient: (3) Coronary artery disease: Problem comment: h/o AMI and RCA stent 2009 Status: Acute Total time spent: Total time spent is greater than 50% in coordination of care (as documented) at patient's floor/unit and/or counseling patient: Plan We had a good discussion today regarding her findings with both the patient and her daughter. I helped him understand the current plate. She is very familiar with this having experienced a similar situation approximately 1.5 years ago at which time she had a left hip hemiarthroplasty performed at an outside facility. Regarding the current right femoral neck fracture that is displaced, I would recommend surgery. Accordingly, we discussed the risks and benefits of both nonoperative and surgical treatment of this major elective surgery. I helped her understand the local risks (e.g. Infection, progression fracture, wound healing) issues as well as systemic risks (e.g. OH, VTE, stroke, ). I believe all questions were answered. I was able to communicate with hospitalist team as well as Anesthesia team and coordinate care. I would anticipate she would be able to weight bear as tolerated following the procedure. We will plan to do a right hip hemiarthroplasty today. We do need to wait, per the Anesthesia recommendations of approximately 8 hours from her last food intake. Therefore, we will plan to do the surgery this afternoon/evening.
[2024-06-18] MEDS: CEFAZOLIN 2 GM in 0.9 % SODIUM CHLORIDE Mini-bag 100 ML IVPB (17:10)
[2024-06-18] MEDS: TRANEXAMIC ACID 100 MG/ML INJ 1000 MG IV (17:25)
--- NOTE | 2024-06-18 17:48 | W.PM.NB ---
Nerve Block Nerve Block Time Seen by Provider: 16:40 Date Seen: 06/18/24 Type of block requested by surgeon for post-operative analgesia: APRIL/LFCN Side: right Time out performed: Yes Verification of patient name: Yes Verification of date of : Yes Site marking: site marked Name of person performing procedure: Petr Vince Continuous monitoring Was continuous monitoring of O2 sat, B/P, case monitor, recorded every 15 minutes?: Yes Procedure Checklist: sterile prep, needles and gloves Ultrasound guided. Images saved: Yes Medications given in 5ml increments after negative aspiration: Ropivicaine %: 0.5 mL: 30 Needle gauge: 21 Decadron (mg): 10 Precedex (mcg): 25 Patient tolerated procedure well: Yes Additional comments: Injected in 5mL increments after negative aspiration Block Charges Block Charge (with Pro Fee): Other Periph Nerve Block Use of Ultrasound Machine for Block: Yes- US Guidance/pain block
--- NOTE | 2024-06-18 18:22 | PC.NURSE ---
(shift 15-193) Pt alert and oriented. Pt?s pain rated a 1. Pt awaiting surgery. Pt brought to surgery at 1630. ?
--- NOTE | 2024-06-18 19:06 | SUR.OPER ---
UPDATED FAMILY PER DR. STERN REQUEST AT 1900.
--- NOTE | 2024-06-18 19:10 | P.ORPRC_ITS ---
Procedure Note Date of procedure: 06/18/24 Procedure: PREOPERATIVE DIAGNOSIS: 1. Right femoral neck fracture, displaced, acute POSTOPERATIVE DIAGNOSIS: 1. Right femoral neck fracture, displaced, acute PROCEDURE: 1. Right hip bipolar hemiarthroplasty, cemented (with 2 super cables due to intraoperative lateral proximal femur/calcar fracture) 2. 53421 - intraoperative fluoroscopy > 1 hour. SURGEON: Chepe Calvo MD. RETAIL MANAGEMENT TRAINEE: Rand Funez PA-C - Of note, a skilled court assistant was critical for this case to aid in patient positioning, tissue retraction, limb manipulation/positioning, and closure. ANESTHESIA: Spinal anesthetic EBL: 300 mL IMPLANTS: DePuy J&J cemented Newton stem (size 3 with a standard neck) +5 mm metal 28 mm inner diameter head and 42 mm outer diameter bipolar head COMPLICATIONS: Intraoperative lateral proximal femur/calcar fracture identified and fixed/stabilized with 2 super cables. INDICATIONS: The patient is a pleasant 78-year-old female who has experienced severe right hip pain and difficulty bearing weight. Workup included x-rays which revealed a displaced right femoral neck fracture. Given the deformity, the dysfunction, and the pain, as well as the failure of nonoperative management, recommendation was made for surgery. FINDINGS: Complete right femoral neck fracture with displacement and expected hemarthrosis. DESCRIPTION OF PROCEDURE: Following a thorough discussion of risks, benefits, and alternatives consent was obtained and the right hip was marked. The patient was brought to the operating room and placed supine on the operating table. Induction of anesthesia was undertaken. 1 g IV Ancef and 1 g tranexamic acid was administered within 1 hr of incision preoperatively. Proper time-out was performed identifying proper patient, site, procedure. The operative extremity was prepped and draped in the appropriate sterile fashion using ChloraPrep after the patient was positioned on the Marfa table with head in neutral alignment and all bony prominences well padded. C-arm fluoroscopic imaging was utilized to confirm proper pelvis rotation and position, and to get true AP films of both the contralateral left, and the affected right hip. This is for comparison. A longitudinal incision was made starting approximately 1 cm distal to the ASIS, and 3-4 cm lateral. The incision was extended distally aiming toward the lateral border the patella. Sharp incision through skin and bovie cautery through the subcutaneous tissue allowed identification of the TFL fascia. This was sharply divided, and the fascia bluntly released from the muscle fibers as we dissected medial. Upon coming to the medial border, we were able to retract the TFL laterally, and penetrated the deeper fascia and identify the crossing circumflex vessels. These were ligated/cauterized. The rectus was elevated from the capsule, and retractors placed laterally and medially along the femoral neck to help with visualization of the capsule. We then performed an inverted T capsulotomy. The capsule was tagged for later repair. Retractors were placed inside the capsule. The femoral neck was visualized after releasing medially down to the lesser trochanter and along the saddle laterally. The femoral neck cut was freshened. The head was removed in a single piece, and sized to 42 mm. Attention was turned to the femoral preparation. The limb was extended, externally rotated, and adducted. The posteromedial capsule was released, as retractors were placed allowing excellent access to the proximal femur. Initially a corrugated box machine operator was followed by canal finder followed by various broaches. We broached sequentially up to the size noted above, found it to have excellent rotational control, and trialing various heads and necks, revealed that appropriate neck offset, and the above noted head size provided the greatest stability, and druze of length, and offset. C-arm fluoroscopic imaging confirmed position of the stem, as well as leg lengths, which were compared with the pre procedure all fluoroscopic images. Of note, during the final trial reduction, it was noted that the proximal femur/calcar had fractured. The calcar had split. The lesser trochanter was still attached to the femoral shaft. It was proximal lateral portion of the femur that had split off. Therefore, we removed the stem, reduced the fracture, applied 2 super cables. 1 was proximal 1 was distal to the lesser trochanter. Excellent stabilization and compression of the fracture could be achieved. It did not over reduce, but rather was proper. The stem was reinserted prior to final tensioning of the super cables. We then completed our cementing preparation with irrigation brush and suction. The cement restrictor was placed and the cement was mixed on the back table. The cement was inserted/filled followed by pressurization. The stem was then inserted and held stable until the cement cured. The real femoral head and bipolar components were opened and inserted. After reducing, the leg was placed through range of motion and stability was confirmed anterior, posterior, and lateral, as well as the fracture stability. Closure of the capsule was performed with #1 PDS. Bleeding was confirmed to be controlled at this stage, and the TFL fascia was closed with #0 strata fix. Subcutaneous, and subcuticular closure was performed with 2-0 Vicryl and 4-0 Monocryl, respectively. Dressings were applied, and the patient was awoken from anesthesia and transferred the PACU in stable condition. A skilled court assistant was critical for this case to aid in patient positioning, tissue retraction, acetabular and proximal femoral exposure, limb manipulation/positioning, dislocation/relocation, patient safety, and closure. PLAN: 1. Weight bear as tolerated operative extremity. 2. 23 hr perioperative antibiotics. 3. Ice. 4. PT/OT consults for ambulation assistance/mobility education. 5. Social work consult for discharge planning. 6. DVT prophylaxis with at SCDs and Xarelto x5 days followed by aspirin for a total of 1 month..
[2024-06-18] MEDS: fentaNYL 100 MCG/2 ML inj 50 MCG IVP (20:29)
[2024-06-19] VITALS (11 sets, daily range): BP systolic 98–121; BP diastolic 46–84; PULSE 63–78; RESP 14–16; TEMP 36.6–37.5; O2SAT 89–98
[2024-06-19] MEDS: SENNOSIDES 1 TAB TABLET 2 TAB PO ×3 (00:28→21:03)
[2024-06-19] MEDS: CEFAZOLIN 1 GM in 0.9 % SODIUM CHLORIDE Mini-bag 100 ML IVPB ×2 (04:19→12:37)
--- NOTE | 2024-06-19 05:10 | PC.NURSE ---
Shift note: Pt was brought to the unit on from the surgery on bed at 2100. She was alert and oriented. Dressing to the surgical site appeared clean and dry. Nurse observed 2 bruises to the right groin next to the incision. OP nurse confirmed it may be related to the anesthetic techniques. Pedal pulse present but week, pt able to move toes of the right leg. No pain reported throughout the night. The Iv Kcl and N/S that were pulsed for the surgery were restarted. [place] in place, drained about 300ml of clear urine. Pt came with 2L of oxygen. Nurse attempted to hold the oxygen but desaturated to below 85%, especially when sleeping. Pt was put on 0.5L throughout the night. Bp has been slightly at the low normal. Pt has been in bed throughout the shift.
[2024-06-19 07:36] LABS: Hematocrit 29.2 % (33.0-51.0); Hemoglobin* 9.4 gm/dL (12.0-16.0); Mean Corpuscular HGB Conc 32 gm/dL (32-36); Mean Corpuscular Hemoglobin 33 pg (26-34); Mean Corpuscular Volume 101 fL (80-100); Platelet Count* 133 K/uL (140-440); Red Blood Count 2.88 m/uL (4.00-5.20); White Blood Count* 12.47 K/uL (4.50-11.00)
[2024-06-19 07:47] LABS: Slide Review Reflex No
[2024-06-19 08:06] LABS: Chloride* 104 mmol/L (96-114); Potassium* 4.1 mmol/L (3.6-5.1); Sodium* 136 mmol/L (135-149)
[2024-06-19 08:08] LABS: Creatinine* 0.6 mg/dL (0.5-1.5); Est. Creatinine Clearance* 38.75; Estimated Glomerular Filt Rate 91 ml/min
[2024-06-19 08:09] LABS: Anion Gap 7 mEq/L (7-15); Blood Urea Nitrogen* 18 mg/dL (7-30); Calcium* 8.7 mg/dL (8.4-10.6); Carbon Dioxide* 25 mmol/L (20-32); Glucose* 140 mg/dL (60-115)
--- NOTE | 2024-06-19 08:19 | P.ORPN_ITS ---
Subjective Subjective Time Seen by Provider: 08:19 Date Seen: 06/19/24 Principal diagnosis: Post right hip bipolar hemiarthroplasty, cemented Interval history: Christina is conversive this morning. Ortho Exam Narrative Exam Narrative: Alert and conversive. Patient is in no acute distress. Converses without labored breathing. Hearing is grossly intact. Dressing is intact. Ecchymosis present surrounding the dressing. Groin skin tear is covered with surgical glue. No sign of infection. Edema is present about the posterior hip area and mildly over the anterior thigh. CMS intact right lower extremity. Const Vital Signs, click to edit/add: Vital Signs - 24 hr 06/18/24 10:54 06/18/24 11:32 06/18/24 11:33 Temperature 98.5 F Pulse Rate 62 64 Pulse Rate [Pulse Oximeter] 59 L Respiratory Rate 20 14 Blood Pressure 101/63 Blood Pressure [Left Arm] Blood Pressure [Right Upper Arm] 127/66 Pulse Oximetry 94 93 95 Oxygen Delivery Method Room Air Room Air Oxygen Flow Rate 06/18/24 11:56 06/18/24 12:00 06/18/24 12:02 Temperature Pulse Rate 72 65 60 Pulse Rate [Pulse Oximeter] Respiratory Rate 16 Blood Pressure 106/87 Blood Pressure [Left Arm] Blood Pressure [Right Upper Arm] Pulse Oximetry 95 94 Oxygen Delivery Method Room Air Oxygen Flow Rate 06/18/24 12:25 06/18/24 12:30 06/18/24 12:32 Temperature Pulse Rate 60 57 L 60 Pulse Rate [Pulse Oximeter] Respiratory Rate 14 Blood Pressure 106/79 Blood Pressure [Left Arm] Blood Pressure [Right Upper Arm] Pulse Oximetry 93 98 95 Oxygen Delivery Method Room Air Oxygen Flow Rate 06/18/24 12:45 06/18/24 13:00 06/18/24 13:05 Temperature Pulse Rate 64 69 66 Pulse Rate [Pulse Oximeter] Respiratory Rate Blood Pressure Blood Pressure [Left Arm] Blood Pressure [Right Upper Arm] Pulse Oximetry 94 95 Oxygen Delivery Method Oxygen Flow Rate 06/18/24 13:23 06/18/24 14:44 06/18/24 14:44 Temperature 98.0 F Pulse Rate 72 Pulse Rate [Pulse Oximeter] Respiratory Rate 14 18 18 Blood Pressure 104/65 Blood Pressure [Left Arm] Blood Pressure [Right Upper Arm] Pulse Oximetry 919 H 96 96 Oxygen Delivery Method Room Air Room Air Room Air Oxygen Flow Rate 06/18/24 15:00 06/18/24 15:00 06/18/24 19:55 Temperature 99.3 F 97.6 F Pulse Rate 64 Pulse Rate [Pulse Oximeter] 69 Respiratory Rate 18 18 14 Blood Pressure 112/54 L Blood Pressure [Left Arm] 113/56 L Blood Pressure [Right Upper Arm] Pulse Oximetry 96 96 100 Oxygen Delivery Method Room Air Room Air OxyMask Oxygen Flow Rate 6 06/18/24 20:00 06/18/24 20:05 06/18/24 20:10 Temperature 98.5 F Pulse Rate 65 65 65 Pulse Rate [Pulse Oximeter] Respiratory Rate 16 16 16 Blood Pressure 99/55 L 110/69 110/69 Blood Pressure [Left Arm] Blood Pressure [Right Upper Arm] Pulse Oximetry 99 100 100 Oxygen Delivery Method OxyMask OxyMask OxyMask Oxygen Flow Rate 6 6 6 06/18/24 20:15 06/18/24 20:20 06/18/24 20:25 Temperature 98.4 F Pulse Rate 67 59 L 62 Pulse Rate [Pulse Oximeter] Respiratory Rate 25 H 12 14 Blood Pressure 99/84 102/53 L 95/43 L Blood Pressure [Left Arm] Blood Pressure [Right Upper Arm] Pulse Oximetry 95 95 100 Oxygen Delivery Method OxyMask OxyMask OxyMask Oxygen Flow Rate 6 6 6 06/18/24 20:30 06/18/24 21:11 06/18/24 21:15 Temperature 98.2 F Pulse Rate 57 L 62 Pulse Rate [Pulse Oximeter] Respiratory Rate 14 16 16 Blood Pressure 92/64 93/70 Blood Pressure [Left Arm] Blood Pressure [Right Upper Arm] Pulse Oximetry 93 98 98 Oxygen Delivery Method OxyMask Room Air Nasal Cannula Oxygen Flow Rate 3 1 1 06/18/24 21:23 06/18/24 21:24 06/18/24 21:27 Temperature 98.2 F 98.2 F 98.2 F Pulse Rate 62 Pulse Rate [Pulse Oximeter] 62 62 Respiratory Rate 16 16 16 Blood Pressure 93/70 Blood Pressure [Left Arm] 93/70 93/70 Blood Pressure [Right Upper Arm] Pulse Oximetry 98 98 98 Oxygen Delivery Method Nasal Cannula Nasal Cannula Nasal Cannula Oxygen Flow Rate 1 1 1 06/18/24 21:30 06/18/24 21:45 06/18/24 22:00 Temperature 98.7 F 98 F 98.3 F Pulse Rate 65 62 62 Pulse Rate [Pulse Oximeter] Respiratory Rate 16 16 16 Blood Pressure 115/51 L 110/52 L 106/54 L Blood Pressure [Left Arm] Blood Pressure [Right Upper Arm] Pulse Oximetry 92 98 100 Oxygen Delivery Method Room Air Nasal Cannula Nasal Cannula Oxygen Flow Rate 1 1 06/18/24 22:10 06/18/24 22:30 06/18/24 22:36 Temperature 98.3 F 98.2 F Pulse Rate 64 Pulse Rate [Pulse Oximeter] 62 Respiratory Rate 16 16 16 Blood Pressure 106/54 L Blood Pressure [Left Arm] 106/54 L Blood Pressure [Right Upper Arm] Pulse Oximetry 100 98 Oxygen Delivery Method Nasal Cannula Nasal Cannula Oxygen Flow Rate 1 0.5 06/18/24 22:36 06/18/24 22:36 06/18/24 23:00 Temperature 98.2 F 98.4 F Pulse Rate 70 Pulse Rate [Pulse Oximeter] 64 Respiratory Rate 16 16 16 Blood Pressure 108/55 L Blood Pressure [Left Arm] 112/55 L Blood Pressure [Right Upper Arm] Pulse Oximetry 98 98 97 Oxygen Delivery Method Nasal Cannula Nasal Cannula Nasal Cannula Oxygen Flow Rate 0.5 0.5 0.5 06/19/24 00:00 06/19/24 01:23 06/19/24 02:00 Temperature 98.1 F 98.1 F 98.6 F Pulse Rate 64 63 66 Pulse Rate [Pulse Oximeter] Respiratory Rate 16 16 16 Blood Pressure 110/57 L 102/49 L 98/48 L Blood Pressure [Left Arm] Blood Pressure [Right Upper Arm] Pulse Oximetry 98 89 89 Oxygen Delivery Method Nasal Cannula Room Air Room Air Oxygen Flow Rate 0.5 06/19/24 02:29 06/19/24 03:00 06/19/24 07:14 Temperature 98.6 F 98 F 99.5 F Pulse Rate 69 Pulse Rate [Pulse Oximeter] 66 69 Respiratory Rate 16 16 16 Blood Pressure 102/51 L Blood Pressure [Left Arm] 98/48 L 107/56 L Blood Pressure [Right Upper Arm] Pulse Oximetry 89 98 95 Oxygen Delivery Method Room Air Nasal Cannula Nasal Cannula Oxygen Flow Rate 0.5 0.5 06/19/24 07:14 Temperature Pulse Rate Pulse Rate [Pulse Oximeter] Respiratory Rate 16 Blood Pressure Blood Pressure [Left Arm] Blood Pressure [Right Upper Arm] Pulse Oximetry 95 Oxygen Delivery Method Nasal Cannula Oxygen Flow Rate 0.5 Assessment and Plan Assessment and plan (1) Closed right hip fracture: Problem details: - 06/18/2024: Displaced right femoral neck fracture s/p fall from standing state - s/p right hip bipolar arthroplasty 06/18/[address] Calvo without complications - PT and OT following; will likely need SNF upon discharge (lives in the independent living setting at [facility]) Status: Acute Plan Christina is comfortable. 1. Weight bear as tolerated operative extremity, right. 2. 23 hr perioperative antibiotics. 3. Ice. 4. PT/OT for ambulation assistance/mobility education. 5. Social work consult has been placed for discharge planning. 6. DVT prophylaxis with at SCDs and Xarelto x5 days followed by aspirin for a total of 1 month..
[2024-06-19] MEDS: RIVAROXABAN 10 MG TABLET PO (08:40)
--- NOTE | 2024-06-19 09:03 | PM.IMPN1 ---
Progress Note: A&P Assessment and plan (1) Closed right hip fracture: Problem details: 06/18/2024: Displaced right femoral neck fracture s/p fall from standing state Reviewed with Dr. Meredith, emergency Department, and Rand Funez, physician occupational therapist assistant for orthopedic surgery. Underwent left hip bipolar arthroplasty 06/18/[address] Calvo without complications. 06/19/2024: PT and OT to assess and assist. Increase activity as tolerated. The big question is whether not she can return to independent living verses short-term transitional care services will be warranted before she can return to live in her independent living setting - she lives in the independent living setting at [facility] in [place], [place]. Status: Acute (2) Seronegative rheumatoid arthritis: Problem details: 06/18/2024: Single dose of hydrocortisone 100 mg IV. Continue with prednisone 2.5 mg daily. Hold methotrexate. Continue with hydroxychloroquine. Status: Acute (3) Coronary artery disease: Problem details: h/o AMI and RCA stent 2009 Status: Acute (4) Postoperative anemia due to acute blood loss: Problem details: - preop hemoglobin 12.1, estimated blood loss 300 mL during surgery, postop hemoglobin 9.4, with ecchymosis about the left hip - continue to monitor hemoglobin Status: Acute Plan 1. Reviewed impression and recommendations with patient 2. Answered patient's questions to her satisfaction. 3. Patient agreeable to above stated plans and recommendations Time Spent With Patient Total time spent: 35 minutes Subjective Date Seen: 06/19/24 Interval history: Hospital day 2. Postoperative day 1. Status post bipolar hemiarthroplasty due to acute traumatic fracture of right femoral neck status post fall from standing state on 06/18/2024. Pain is much better controlled since surgery. She is tolerating increased activity already. Tolerating oral intake. Denies cardiopulmonary concerns. Denies gastrointestinal or genitourinary concerns. Exam Narrative: Exam Narrative: Examine her in her hospital room. Initially she is laying in her bed. Later I see her transfer from supine to sitting and sitting to standing and taking a few steps with use of walker, gait belt, and standby assist of 1. Appears comfortable and in no acute distress. Friendly, articulate, cooperative. Alert and oriented x4. Lungs clear to auscultation. Heart tones with regular rhythm. Abdomen with active bowel sounds, soft. Skin tear left groin with wound care in place. Dressing for left hip surgery in place. Does have surrounding ecchymoses. Palpable pulses upper and lower extremities. No focal motor neurologic deficits. Const: Vital Signs, click to edit/add: Vital Signs - 24 hr 06/18/24 10:54 06/18/24 11:32 06/18/24 11:33 Temperature 98.5 F Pulse Rate 62 64 Pulse Rate [Pulse Oximeter] 59 L Respiratory Rate 20 14 Blood Pressure 101/63 Blood Pressure [Le ft Arm] Blood Pressure [Ri ght Upper Arm] 127/66 Pulse Oximetry 94 93 95 Oxygen Delivery Me thod Room Air Room Air Oxygen Flow Rate 06/18/24 11:56 06/18/24 12:00 06/18/24 12:02 Temperature Pulse Rate 72 65 60 Pulse Rate [Pulse Oximeter] Respiratory Rate 16 Blood Pressure 106/87 Blood Pressure [Le ft Arm] Blood Pressure [Ri ght Upper Arm] Pulse Oximetry 95 94 Oxygen Delivery Me thod Room Air Oxygen Flow Rate 06/18/24 12:25 06/18/24 12:30 06/18/24 12:32 Temperature Pulse Rate 60 57 L 60 Pulse Rate [Pulse Oximeter] Respiratory Rate 14 Blood Pressure 106/79 Blood Pressure [Le ft Arm] Blood Pressure [Ri ght Upper Arm] Pulse Oximetry 93 98 95 Oxygen Delivery Me thod Room Air Oxygen Flow Rate 06/18/24 12:45 06/18/24 13:00 06/18/24 13:05 Temperature Pulse Rate 64 69 66 Pulse Rate [Pulse Oximeter] Respiratory Rate Blood Pressure Blood Pressure [Le ft Arm] Blood Pressure [Ri ght Upper Arm] Pulse Oximetry 94 95 Oxygen Delivery Me thod Oxygen Flow Rate 06/18/24 13:23 06/18/24 14:44 06/18/24 14:44 Temperature 98.0 F Pulse Rate 72 Pulse Rate [Pulse Oximeter] Respiratory Rate 14 18 18 Blood Pressure 104/65 Blood Pressure [Le ft Arm] Blood Pressure [Ri ght Upper Arm] Pulse Oximetry 919 H 96 96 Oxygen Delivery Me thod Room Air Room Air Room Air Oxygen Flow Rate 06/18/24 15:00 06/18/24 15:00 06/18/24 19:55 Temperature 99.3 F 97.6 F Pulse Rate 64 Pulse Rate [Pulse Oximeter] 69 Respiratory Rate 18 18 14 Blood Pressure 112/54 L Blood Pressure [Le ft Arm] 113/56 L Blood Pressure [Ri ght Upper Arm] Pulse Oximetry 96 96 100 Oxygen Delivery Me thod Room Air Room Air OxyMask Oxygen Flow Rate 6 06/18/24 20:00 06/18/24 20:05 06/18/24 20:10 Temperature 98.5 F Pulse Rate 65 65 65 Pulse Rate [Pulse Oximeter] Respiratory Rate 16 16 16 Blood Pressure 99/55 L 110/69 110/69 Blood Pressure [Le ft Arm] Blood Pressure [Ri ght Upper Arm] Pulse Oximetry 99 100 100 Oxygen Delivery Me thod OxyMask OxyMask OxyMask Oxygen Flow Rate 6 6 6 06/18/24 20:15 06/18/24 20:20 06/18/24 20:25 Temperature 98.4 F Pulse Rate 67 59 L 62 Pulse Rate [Pulse Oximeter] Respiratory Rate 25 H 12 14 Blood Pressure 99/84 102/53 L 95/43 L Blood Pressure [Le ft Arm] Blood Pressure [Ri ght Upper Arm] Pulse Oximetry 95 95 100 Oxygen Delivery Me thod OxyMask OxyMask OxyMask Oxygen Flow Rate 6 6 6 06/18/24 20:30 06/18/24 21:11 06/18/24 21:15 Temperature 98.2 F Pulse Rate 57 L 62 Pulse Rate [Pulse Oximeter] Respiratory Rate 14 16 16 Blood Pressure 92/64 93/70 Blood Pressure [Le ft Arm] Blood Pressure [Ri ght Upper Arm] Pulse Oximetry 93 98 98 Oxygen Delivery Me thod OxyMask Room Air Nasal Cannula Oxygen Flow Rate 3 1 1 06/18/24 21:23 06/18/24 21:24 06/18/24 21:27 Temperature 98.2 F 98.2 F 98.2 F Pulse Rate 62 Pulse Rate [Pulse Oximeter] 62 62 Respiratory Rate 16 16 16 Blood Pressure 93/70 Blood Pressure [Le ft Arm] 93/70 93/70 Blood Pressure [Ri ght Upper Arm] Pulse Oximetry 98 98 98 Oxygen Delivery Me thod Nasal Cannula Nasal Cannula Nasal Cannula Oxygen Flow Rate 1 1 1 06/18/24 21:30 06/18/24 21:45 06/18/24 22:00 Temperature 98.7 F 98 F 98.3 F Pulse Rate 65 62 62 Pulse Rate [Pulse Oximeter] Respiratory Rate 16 16 16 Blood Pressure 115/51 L 110/52 L 106/54 L Blood Pressure [Le ft Arm] Blood Pressure [Ri ght Upper Arm] Pulse Oximetry 92 98 100 Oxygen Delivery Me thod Room Air Nasal Cannula Nasal Cannula Oxygen Flow Rate 1 1 06/18/24 22:10 06/18/24 22:30 06/18/24 22:36 Temperature 98.3 F 98.2 F Pulse Rate 64 Pulse Rate [Pulse Oximeter] 62 Respiratory Rate 16 16 16 Blood Pressure 106/54 L Blood Pressure [Le ft Arm] 106/54 L Blood Pressure [Ri ght Upper Arm] Pulse Oximetry 100 98 Oxygen Delivery Me thod Nasal Cannula Nasal Cannula Oxygen Flow Rate 1 0.5 06/18/24 22:36 06/18/24 22:36 06/18/24 23:00 Temperature 98.2 F 98.4 F Pulse Rate 70 Pulse Rate [Pulse Oximeter] 64 Respiratory Rate 16 16 16 Blood Pressure 108/55 L Blood Pressure [Le ft Arm] 112/55 L Blood Pressure [Ri ght Upper Arm] Pulse Oximetry 98 98 97 Oxygen Delivery Me thod Nasal Cannula Nasal Cannula Nasal Cannula Oxygen Flow Rate 0.5 0.5 0.5 06/19/24 00:00 06/19/24 01:23 06/19/24 02:00 Temperature 98.1 F 98.1 F 98.6 F Pulse Rate 64 63 66 Pulse Rate [Pulse Oximeter] Respiratory Rate 16 16 16 Blood Pressure 110/57 L 102/49 L 98/48 L Blood Pressure [Le ft Arm] Blood Pressure [Ri ght Upper Arm] Pulse Oximetry 98 89 89 Oxygen Delivery Me thod Nasal Cannula Room Air Room Air Oxygen Flow Rate 0.5 06/19/24 02:29 06/19/24 03:00 06/19/24 07:14 Temperature 98.6 F 98 F 99.5 F Pulse Rate 69 Pulse Rate [Pulse Oximeter] 66 69 Respiratory Rate 16 16 16 Blood Pressure 102/51 L Blood Pressure [Le ft Arm] 98/48 L 107/56 L Blood Pressure [Ri ght Upper Arm] Pulse Oximetry 89 98 95 Oxygen Delivery Me thod Room Air Nasal Cannula Nasal Cannula Oxygen Flow Rate 0.5 0.5 06/19/24 07:14 Temperature Pulse Rate Pulse Rate [Pulse Oximeter] Respiratory Rate 16 Blood Pressure Blood Pressure [Le ft Arm] Blood Pressure [Ri ght Upper Arm] Pulse Oximetry 95 Oxygen Delivery Me thod Nasal Cannula Oxygen Flow Rate 0.5 Labs Labs: Laboratory Results - last 24 hr 06/18/24 06/18/24 06/19/24 12:30 12:53 07:30 WBC 13.90 H 12.47 H RBC 3.65 L 2.88 L Hgb 12.1 9.4 L Hct 37.6 29.2 L MCV 103 H 101 H MCH 33 33 MCHC 32 32 RDW Coeff of Latonya 14.3 Plt Count 151 133 L Neut % (Auto) 90.3 H Lymph % (Auto) 6.0 L [place] % (Auto) 3.2 Eos % (Auto) 0.2 Baso % (Auto) 0.1 Neut # (Auto) 12.60 H Lymph # (Auto) 0.80 L [place] # (Auto) 0.40 Eos # (Auto) 0.00 Baso # (Auto) 0.00 Abs Immat Gran (auto) 0.00 Imm/Tot Granulo (auto) 0.2 Sodium 137 136 Potassium 3.2 L 4.1 Chloride 102 104 Carbon Dioxide 30 25 Anion Gap 5 L 7 BUN 20 18 Creatinine 0.6 0.6 Estimated Creat Clear 38.75 38.75 Estimated GFR 91 91 Glucose 113 140 H Calcium 9.1 8.7 Troponin I < 0.01 L Lab Acknowledgement Test Added
[2024-06-19] MEDS: OXYCODONE 5 MG TABLET PO ×3 (10:33→21:04)
--- NOTE | 2024-06-19 18:23 | PC.NURSE ---
Pt had some confusion mid-morning. Pt unsure of why Pt is here, that surgery had been done. Pt alert to self. Pt pleasant and cooperative. Pt had complaints of no pain to ?very bad pain?- see EMAR for intervention. Pt up to chair x 2 during shift. Pt up with assist of two with gait belt and sarasteady. Pt?s family at bedside most of shift. Pt?s dressing is dry and intact. Pt?s gonzalez catheter in place.?
[2024-06-19] MEDS: 0.9 % SODIUM CHLORIDE 500 ML IV (21:46)
[2024-06-20] VITALS (10 sets, daily range): BP systolic 101–122; BP diastolic 45–71; PULSE 71–80; RESP 14–18; TEMP 36.6–38.3; O2SAT 91–97
[2024-06-20] MEDS: 0.9 % SODIUM CHLORIDE 500 ML IV (04:44)
[2024-06-20 06:53] LABS: Basophils Absolute Auto 0.04 K/uL (0.00-0.30); Basophils Percent Auto 0.4 % (0.0-3.0); Eosinophils Absolute Auto 0.48 K/uL (0.00-0.50); Eosinophils Percent Auto 4.5 % (0.0-7.0); Hematocrit 25.4 % (33.0-51.0); Immature Granulocytes Abs Auto 0.03 K/uL (0.00-0.30); Immature Granulocytes Pct Auto 0.3 %; Lymphocytes Percent Auto 15.7 % (20-44); Mean Corpuscular HGB Conc 32 gm/dL (32-36); Mean Corpuscular Hemoglobin 33 pg (26-34); Mean Corpuscular Volume 104 fL (80-100); Monocytes Percent Auto 8.1 % (0.0-11.0); Neutrophils Absolute Auto 7.57 K/uL (1.7-7.0); Platelet Count* 116 K/uL (140-440); RDW Coefficient of Variation % 14.6 % (11.5-15.5); Red Blood Count 2.44 m/uL (4.00-5.20); White Blood Count* 10.65 K/uL (4.50-11.00)
[2024-06-20 07:03] LABS: Slide Review Reflex No
--- NOTE | 2024-06-20 07:16 | P.IMPN_ITS ---
Progress Note: A&P Assessment and plan (1) Closed right hip fracture: Problem details: - 06/18/2024: Displaced right femoral neck fracture s/p fall from standing state - s/p right hip bipolar arthroplasty 06/18/[address] Calvo without complications - PT and OT following; will likely need SNF upon discharge (lives in the independent living setting at [facility] in [place]) Status: Acute (2) Fever: Problem details: - T 100.9 on 06/20: reassuring exam, repeat temperature wnl - CXR without acute findings, + bacteriuria. Culture pending, will treat empirically with Ceftriaxone (h/o rash with Amoxicillin per Epic chart) Status: Acute (3) Seronegative rheumatoid arthritis: Problem details: - 06/18/2024: Single dose of hydrocortisone 100 mg IV upon admission - postoperatively, continuing prednisone 2.5 mg daily and hydroxychloroquine. Holding methotrexate Status: Acute (4) Coronary artery disease: Problem details: - h/o AMI and RCA stent 2009 Status: Acute (5) Postoperative anemia due to acute blood loss: Problem details: - preop hemoglobin 12.1, estimated blood loss 300 mL during surgery, postop hemoglobin 9.4, with ecchymosis about the left hip - 06/20: Hgb 8.0 - no evidence of acute bleeding, normal BUN, continue to follow Hgb Status: Acute Plan - per above - likely SNF in 1-2 days, pending bed availability Subjective Date Seen: 06/20/24 Interval history: Christina was admitted to the hospital on 06/18 for a R femoral neck fracture s/p ground level fall. She is POD#2 from a R bipolar hemiarthroplasty with Dr. Calvo of Orthopedic Surgery. VSS. Hgb 8 (preoperative Hgb 12), MCV 104. Platelets 116. Overnight, UOP was 280mL/12 hours (23mL/hour); gonzalez to be removed today. This morning, Christina had a temperature of 100.9; repeat temperature 97. She denies cough, chest pain, or feeling poorly. Has been mildly confused (she and daughter both note this) postoperatively. Will need SNF upon discharge. Exam Narrative: Exam Narrative: GEN: Sitting up in bed, nontoxic in appearance. Appears to have mild confusion (asks me my name twice, doesn't remember where she lived before [facility]) HEENT: EOMIs bilaterally, no scleral icterus CV: RRR, + systolic murmur heard best at LSB without radiation R: No wheezing or rales, decreased air movement bilateral bases Ab: soft, nontender Ext: L hip incision has no evidence of active infection. Mild bruising surrounding site without a large hematoma. No concerning edema Skin: No concerning skin lesions or rashes on exposed skin Neuro: No focal deficits Const: Vital Signs, click to edit/add: Vital Signs - 24 hr 06/19/24 11:00 06/19/24 14:44 06/19/24 14:44 Temperature 98.1 F 98.1 F Pulse Rate [Bilate ral Dorsalis Pedis ] Pulse Rate [Pulse Oximeter] 67 65 Respiratory Rate 16 14 14 Blood Pressure [Le ft Arm] 121/64 106/46 L Pulse Oximetry 96 96 96 Oxygen Delivery Me thod Room Air Room Air Room Air Oxygen Flow Rate 0 06/19/24 14:44 06/19/24 19:55 06/19/24 21:50 Temperature 98.2 F Pulse Rate [Bilate ral Dorsalis Pedis ] 74 Pulse Rate [Pulse Oximeter] 65 72 Respiratory Rate 16 16 Blood Pressure [Le ft Arm] 119/57 L Pulse Oximetry 94 Oxygen Delivery Me thod Room Air Oxygen Flow Rate 06/19/24 23:14 06/19/24 23:14 06/20/24 03:22 Temperature 98.2 F 98.4 F Pulse Rate [Bilate ral Dorsalis Pedis ] Pulse Rate [Pulse Oximeter] 78 75 Respiratory Rate 14 16 16 Blood Pressure [Le ft Arm] 103/84 103/59 L Pulse Oximetry 92 92 91 Oxygen Delivery Me thod Room Air Room Air Room Air Oxygen Flow Rate Documenting provider has reviewed patient's vital signs: yes Labs Labs: Laboratory Results - last 24 hr 06/19/24 06/20/24 07:30 05:49 WBC 12.47 H 10.65 RBC 2.88 L 2.44 L Hgb 9.4 L 8.0 L Hct 29.2 L 25.4 L MCV 101 H 104 H MCH 33 33 MCHC 32 32 RDW Coeff of Latonya 14.6 Plt Count 133 L 116 L Neut % (Auto) 71.0 Lymph % (Auto) 15.7 L [place] % (Auto) 8.1 Eos % (Auto) 4.5 Baso % (Auto) 0.4 Neut # (Auto) 7.57 H Lymph # (Auto) 1.70 [place] # (Auto) 0.90 Eos # (Auto) 0.48 Baso # (Auto) 0.04 Abs Immat Gran (auto) 0.03 Imm/Tot Granulo (auto) 0.3 Sodium 136 Potassium 4.1 Chloride 104 Carbon Dioxide 25 Anion Gap 7 BUN 18 Creatinine 0.6 Estimated Creat Clear 38.75 Estimated GFR 91 Glucose 140 H Calcium 8.7
--- NOTE | 2024-06-20 07:20 | PC.NURSE ---
Pt is alert and oriented to self and place, pt knows what year but struggled with month and day. Afebrile. Pt report?s 0-3/10 pain in right hip, pain managed with PRN medications. Right hip dressing is CDI, bruising around dressing. Pt?s gonzalez is patent and draining, pt has had low output throughout shift x2 PRN bolus given per order in OCT, updated MD Mack. Pt up A2 with Claire Steady and slept throughout most of night. ? ?
--- NOTE | 2024-06-20 07:29 | P.ORPN_ITS ---
Subjective Subjective Time Seen by Provider: 07:29 Date Seen: 06/20/24 Principal diagnosis: Post right hip bipolar hemiarthroplasty, cemented Interval history: Patient is alert and conversive. Plan for discharge is to a nursing home facility. [employer] will assist. Ortho Exam Narrative Exam Narrative: Alert and conversive. Patient is in no acute distress. Converses without labored breathing. Hearing is grossly intact. Ambulates with a assistance. Valencia in place Dressing on right hip is intact. Ecchymosis present. Edema present. She is not able to straight leg raise. CMS intact right lower extremity. Calves are soft and nontender. Const Vital Signs, click to edit/add: Vital Signs - 24 hr 06/19/24 11:00 06/19/24 14:44 06/19/24 14:44 Temperature 98.1 F 98.1 F Pulse Rate [Bilateral Dorsalis Pedis] Pulse Rate [Pulse Oximeter] 67 65 Respiratory Rate 16 14 14 Blood Pressure [Left Arm] 121/64 106/46 L Pulse Oximetry 96 96 96 Oxygen Delivery Method Room Air Room Air Room Air Oxygen Flow Rate 0 06/19/24 14:44 06/19/24 19:55 06/19/24 21:50 Temperature 98.2 F Pulse Rate [Bilateral Dorsalis Pedis] 74 Pulse Rate [Pulse Oximeter] 65 72 Respiratory Rate 16 16 Blood Pressure [Left Arm] 119/57 L Pulse Oximetry 94 Oxygen Delivery Method Room Air Oxygen Flow Rate 06/19/24 23:14 06/19/24 23:14 06/20/24 03:22 Temperature 98.2 F 98.4 F Pulse Rate [Bilateral Dorsalis Pedis] Pulse Rate [Pulse Oximeter] 78 75 Respiratory Rate 14 16 16 Blood Pressure [Left Arm] 103/84 103/59 L Pulse Oximetry 92 92 91 Oxygen Delivery Method Room Air Room Air Room Air Oxygen Flow Rate Assessment and Plan Assessment and plan (1) Closed right hip fracture: Problem details: - 06/18/2024: Displaced right femoral neck fracture s/p fall from standing state - s/p right hip bipolar arthroplasty 06/18/[address] Calvo without complications - PT and OT following; will likely need SNF upon discharge (lives in the independent living setting at [facility]) Status: Acute Assessment and Plan: Christina brasher will need nursing home facility upon discharge. [employer] has been consulted. Orthopedic discharge medications will be sent to the pharmacy once it is known. Christina is comfortable. 1. Weight bear as tolerated operative extremity, right. 2. 23 hr perioperative antibiotics. 3. Ice. 4. PT/OT for ambulation assistance/mobility education. 5. Social work consult has been placed for discharge planning. 6. DVT prophylaxis with at SCDs and Xarelto x5 days followed by aspirin for a total of 1 month
--- NOTE | 2024-06-20 07:50 | CRLHL7_ITS ---
For Patients: As a result of the Century Cures Act, medical imaging exams and procedure reports are released immediately into your electronic medical record. You may view this report before your referring provider. If you have questions, please contact your health care provider. Indication: : Fever TECHNIQUE: Single-view chest. FINDINGS: The lungs are clear. The heart, mediastinum and pulmonary vessels are of normal size. There is no evidence of pleural disease. Scoliosis. IMPRESSION: Negative chest. Dictated by Zakiya Treviño MD @ 06/20/2024 8:34:11 AM (Electronically Signed)
[2024-06-20 08:13] LABS: Appearance Urine Slightly Cloudy (Clear); Bilirubin Urine Negative (Negative); Blood Urine 3+ (Negative); Glucose Urine Negative (Negative); Ketones Urine Negative (Negative); Leukocyte Esterase Urine 1+ (Negative); Nitrite Urine Negative (Negative); Protein Urine 1+ (Negative); Specific Gravity Urine 1.025 (1.000-1.030); Urobilinogen Urine 0.2 (0.2-1.0); pH Urine 5.5 (5.0-8.5)
[2024-06-20] MEDS: ACETAMINOPHEN 325 MG TABLET 650 MG PO ×3 (08:20→23:30)
[2024-06-20 08:56] LABS: Color Urine Orange (Yellow)
[2024-06-20 08:57] LABS: Bacteria Urine Moderate; RBC Urine 25-50 (0-2); Squamous Epithelial Cell Urine Few (None-Few)
[2024-06-20] MEDS: FOLIC ACID 1 MG TABLET PO (09:01)
[2024-06-20] MEDS: HYDROXYCHLOROQUINE 200 MG TABLET PO (09:01)
[2024-06-20] MEDS: predniSONE 5 MG TABLET 2.5 MG PO (09:01)
[2024-06-20] MEDS: oxyBUTYnin chloride 5 MG TAB.ER.24 15 MG PO (09:01)
[2024-06-20] MEDS: RIVAROXABAN 10 MG TABLET PO (09:01)
[2024-06-20] MEDS: SODIUM CHLORIDE 0.9 % (FLUSH) 10 ML SYRINGE 5 ML IVF ×2 (09:02→19:51)
[2024-06-20] MEDS: SENNOSIDES 1 TAB TABLET 2 TAB PO (09:21)
[2024-06-20] MEDS: cefTRIAXone 1 GM in 0.9 % SODIUM CHLORIDE Mini-bag 100 ML IVPB (12:12)
--- NOTE | 2024-06-20 16:43 | PC.NURSE ---
Shift Summary: Patient pleasant and cooperative. Up with two assist, gait belt and dolores steady. Encouraged ensure with lunch and had about 50%. Valencia out this AM with catheter tip intact, has been voiding well since. Temp of 100.9 this morning, given PRN tylenol and collected sample for U/A. Asking for only tylenol for pain and ice packs. Soft BP this morning, hold scheduled Metoprolol per .
[2024-06-20] MEDS: ATORVASTATIN CALCIUM 40 MG TABLET 80 MG PO (17:41)
[2024-06-21] VITALS (7 sets, daily range): BP systolic 103–111; BP diastolic 52–55; PULSE 66–76; RESP 16–18; TEMP 36.6–37.1; O2SAT 95–100
[2024-06-21 06:33] LABS: Basophils Absolute Auto 0.04 K/uL (0.00-0.30); Basophils Percent Auto 0.4 % (0.0-3.0); Hematocrit 25.4 % (33.0-51.0); Hemoglobin* 8.2 gm/dL (12.0-16.0); Immature Granulocytes Abs Auto 0.03 K/uL (0.00-0.30); Immature Granulocytes Pct Auto 0.3 %; Lymphocytes Percent Auto 13.9 % (20-44); Mean Corpuscular HGB Conc 32 gm/dL (32-36); Mean Corpuscular Hemoglobin 33 pg (26-34); Mean Corpuscular Volume 103 fL (80-100); Monocytes Percent Auto 6.2 % (0.0-11.0); Neutrophils Percent Auto 75.2 % (42.0-72.0); Platelet Count* 116 K/uL (140-440); RDW Coefficient of Variation % 14.8 % (11.5-15.5); Red Blood Count 2.46 m/uL (4.00-5.20); White Blood Count* 10.07 K/uL (4.50-11.00)
[2024-06-21] MEDS: LEVOTHYROXINE 88 MCG TABLET PO (06:45)
[2024-06-21] MEDS: OMEPRAZOLE 20 MG CAPSULE DR 40 MG PO (06:45)
[2024-06-21 06:48] LABS: Slide Review Reflex No
[2024-06-21 07:00] LABS: Chloride* 105 mmol/L (96-114); Potassium* 3.4 mmol/L (3.6-5.1); Sodium* 138 mmol/L (135-149)
--- NOTE | 2024-06-21 07:02 | PC.NURSE ---
Pt is alert and oriented x3 with some forgetfulness. Afebrile. Pt report?s 0-7/10 pain in right hip, pain managed with PRN medications. Right hip dressing is CDI, bruising around dressing. Pt up A2 with Sarasteady and slept throughout most of night. ? ?
[2024-06-21 07:03] LABS: Anion Gap 2 mEq/L (7-15); Blood Urea Nitrogen* 11 mg/dL (7-30); Carbon Dioxide* 31 mmol/L (20-32); Creatinine* 0.6 mg/dL (0.5-1.5); Est. Creatinine Clearance* 38.75; Estimated Glomerular Filt Rate 91 ml/min
[2024-06-21 07:04] LABS: Calcium* 8.7 mg/dL (8.4-10.6); Glucose* 102 mg/dL (60-115)
[2024-06-21] MEDS: predniSONE 5 MG TABLET 2.5 MG PO (07:57)
--- NOTE | 2024-06-21 08:27 | P.ORPN_ITS ---
Subjective Subjective Date Seen: 06/21/24 Principal diagnosis: Post right hip bipolar hemiarthroplasty, cemented anterior approach Interval history: Patient reports doing okay. No acute events over night. Reports to me less confusion today. Pain managed with scheduled and PRN medications, ice. DVT prophylaxis: 10 mg Rivaroxaban daily, SCDs, walking. Denies fevers, chills, aches, N/V, CP, SOB/OCONNOR, or lightheadedness. Passing flatus. Using incentive spirometer. Poor appetite. Ortho Exam Narrative Exam Narrative: -Patient appears comfortable in bed; no apparent acute distress. She was confused regarding surgery side. -Alert and oriented to self, place, events -Operative hip mildly swollen; soft tissues supple. Ecchymosis right hip. Warmth appropriate. Area of erythema within the right inguinal fold, raw appearing, though healthy without evidence of infection. No drainage. -Surgical dressing clean, dry, intact; no obvious drainage, no erythematous streaking peripheral to the bandage -Bilateral calves soft and supple; no significant swelling, edema, tenderness, erythema, discoloration, warmth, or palpable cords -2+ DP/PT pulses, intact dermatomes and myotomes distally (5/5 strength). No numbness about the lateral femoral cutaneous nerve distribution. Const Vital Signs, click to edit/add: Vital Signs - 24 hr 06/20/24 10:28 06/20/24 10:49 06/20/24 15:00 Temperature 97.9 F 98.2 F 98.2 F Pulse Rate [Pulse Oximeter] 71 78 Respiratory Rate 16 18 Blood Pressure [Left Arm] 101/45 L 122/71 Blood Pressure [Right Arm] Pulse Oximetry 95 97 Oxygen Delivery Method Room Air Room Air Oxygen Flow Rate 06/20/24 15:21 06/20/24 19:42 06/20/24 23:24 Temperature 98.1 F Pulse Rate [Pulse Oximeter] 80 Respiratory Rate 18 18 14 Blood Pressure [Left Arm] 103/62 Blood Pressure [Right Arm] Pulse Oximetry 97 96 93 Oxygen Delivery Method Room Air Room Air Room Air Oxygen Flow Rate 06/20/24 23:24 06/21/24 03:15 06/21/24 07:59 Temperature 98.3 F 98.1 F 98.2 F Pulse Rate [Pulse Oximeter] 75 76 74 Respiratory Rate 14 16 18 Blood Pressure [Left Arm] 110/58 L 111/52 L Blood Pressure [Right Arm] 103/53 L Pulse Oximetry 93 95 96 Oxygen Delivery Method Room Air Room Air Room Air Oxygen Flow Rate 0 Assessment and Plan Assessment and plan (1) Closed right hip fracture: Problem details: - 06/18/2024: Displaced right femoral neck fracture s/p fall from standing state - s/p right hip bipolar arthroplasty 06/18/[address] Calvo. - PT and OT following; will need SNF upon discharge (lives in the independent living setting at [facility]) Status: Acute (2) Fever: Problem details: - T 100.9 on 06/20: reassuring exam, repeat temperature wnl - CXR without acute findings, + bacteriuria. Culture pending, will treat emp irically with Ceftriaxone (h/o rash with Amoxicillin per [facility] chart) Status: Acute (3) Seronegative rheumatoid arthritis: Problem details: - 06/18/2024: Single dose of hydrocortisone 100 mg IV upon admission - postoperatively, continuing prednisone 2.5 mg daily and hydroxychloroquine. Holding methotrexate Status: Acute (4) Coronary artery disease: Problem details: - h/o AMI and RCA stent 2009 Status: Acute (5) Postoperative anemia due to acute blood loss: Problem details: - preop hemoglobin 12.1, estimated blood loss 300 mL during surgery, postop hemoglobin 9.4, with ecchymosis about the left hip - 06/20: Hgb 8.0 - no evidence of acute bleeding, normal BUN, continue to follow Hgb Status: Acute (6) Intertrigo: Problem details: Right inguinal region; nystatin power verses barrier application; dry clot application to keep area clean and dry. Status: Acute Plan - PT/OT consult for education and assistance. - Social work consult for discharge planning - SNF needed. - Prescribed analgesics as needed - DVT prophylaxis: 10 mg rivaroxaban once daily, walking, and SCDs - Anticipation is for discharge to SNF once that is located and if the patient remains medically stable, pain is controlled, and they are safe with mobilization.
[2024-06-21] MEDS: oxyBUTYnin chloride 5 MG TAB.ER.24 15 MG PO (09:06)
[2024-06-21] MEDS: SENNOSIDES 1 TAB TABLET 2 TAB PO ×2 (09:07→20:51)
[2024-06-21] MEDS: METOPROLOL SUCCINATE (XL) 25 MG TAB 12.5 MG PO (09:07)
[2024-06-21] MEDS: ACETAMINOPHEN 325 MG TABLET 650 MG PO ×2 (09:07→18:47)
[2024-06-21] MEDS: HYDROXYCHLOROQUINE 200 MG TABLET PO (09:07)
[2024-06-21] MEDS: RIVAROXABAN 10 MG TABLET PO (09:07)
[2024-06-21] MEDS: FOLIC ACID 1 MG TABLET PO (09:07)
[2024-06-21] MEDS: SODIUM CHLORIDE 0.9 % (FLUSH) 10 ML SYRINGE 5 ML IVF ×2 (09:08→20:50)
[2024-06-21] MEDS: NYSTATIN POWDER 1 APPLIC TOPICAL ×2 (11:24→20:50)
--- NOTE | 2024-06-21 11:35 | PC.SOCIAL ---
Addendum entered and electronically signed by TIMA Walton 06/21/24 13:54: Discharge planning: Pt was accepted to [facility] in [place] for admission on Friday of this week. Pt will accept the room. Pt may need non-emergent EMS due to her hip fracture. Social work to follow-up as needed. Original Note: Discharge planning: telecommunications linesworker met with pt today to discuss discharge planning. Pt is being recommended for short-term rehab after discharge from the hospital. Pt would like to go to [facility] in [place] since pt already lives on the [facility]. telecommunications linesworker reached out to Charlette at [facility] and found that they do have an opening this week on Friday and would be willing to review the pt's referral. telecommunications linesworker sent the referral to Charlette via secure email for review. Social work to follow-up as needed.
--- NOTE | 2024-06-21 12:42 | PM.IMPN1 ---
Progress Note: A&P Assessment and plan (1) Closed right hip fracture: Problem details: - 06/18/2024: Displaced right femoral neck fracture s/p fall from standing state - s/p right hip bipolar arthroplasty 06/18/[address] Calvo. - PT and OT following; will need SNF upon discharge (lives in the independent living setting at [facility]) Status: Acute (2) Fever: Problem details: - T 100.9 on 06/20: reassuring exam, repeat temperature wnl - CXR without acute findings, + bacteriuria. Culture pending, will treat empirically with Ceftriaxone (h/o rash with Amoxicillin per Epic chart) Status: Acute (3) Seronegative rheumatoid arthritis: Problem details: - 06/18/2024: Single dose of hydrocortisone 100 mg IV upon admission - postoperatively, continuing prednisone 2.5 mg daily and hydroxychloroquine. Holding methotrexate Status: Acute (4) Coronary artery disease: Problem details: - h/o AMI and RCA stent 2009 Status: Acute (5) Postoperative anemia due to acute blood loss: Problem details: - preop hemoglobin 12.1, estimated blood loss 300 mL during surgery, postop hemoglobin 9.4, with ecchymosis about the left hip - 06/20: Hgb 8.0 - no evidence of acute bleeding, normal BUN, continue to follow Hgb Status: Acute (6) Intertrigo: Problem details: - Right inguinal region; nystatin power verses barrier application; dry clot application to keep area clean and dry. Status: Acute Plan - per above - awaiting placement Subjective Date Seen: 06/21/24 Interval history: Christina was admitted to the hospital on 06/18 for a R femoral neck fracture s/p ground level fall at home. She had a R bipolar hemiarthroplasty with Dr. Calvo of Orthopedic Surgery on 06/18/24. VSS; fever x1 on 06/20 without recurrence. No acute findings on CXR, urine culture negative. Preoperative Hgb 12, postoperative Hgb stable between 8-9 without evidence of acute bleeding. Also has mild thrombocytopenia with platelets 116. Working with therapies, will need SNF upon discharge. This morning, Christina is feeling good. She has no concerns for hospitalist team. Exam Narrative: Exam Narrative: GEN: Alert and oriented, sitting comfortably in bedside chair HEENT: Normal external ears, EOMIs bilaterally, no scleral icterus CV: RRR, + systolic murmur heard best at LSB R: LCTA bilaterally without concerning wheezing, air movement adequate Ext: R hip incision healing well without s/sx of infection. Mild bruising around site. wwp, no concerning edema Skin: No concerning skin lesions or rashes on exposed skin Neuro: Nonfocal Psych: Appears to have mild cognitive impairment, no agitation Const: Vital Signs, click to edit/add: Vital Signs - 24 hr 06/20/24 15:00 06/20/24 15:21 06/20/24 19:42 Temperature 98.2 F 98.1 F Pulse Rate [Pulse Oximeter] 78 80 Respiratory Rate 18 18 18 Blood Pressure [Le ft Arm] 122/71 103/62 Blood Pressure [Ri ght Arm] Pulse Oximetry 97 97 96 Oxygen Delivery Me thod Room Air Room Air Room Air Oxygen Flow Rate 06/20/24 23:24 06/20/24 23:24 06/21/24 03:15 Temperature 98.3 F 98.1 F Pulse Rate [Pulse Oximeter] 75 76 Respiratory Rate 14 14 16 Blood Pressure [Le ft Arm] 110/58 L 111/52 L Blood Pressure [Ri ght Arm] Pulse Oximetry 93 93 95 Oxygen Delivery Me thod Room Air Room Air Room Air Oxygen Flow Rate 0 06/21/24 07:59 06/21/24 07:59 06/21/24 07:59 Temperature 98.2 F Pulse Rate [Pulse Oximeter] 74 74 Respiratory Rate 18 18 18 Blood Pressure [Le ft Arm] Blood Pressure [Ri ght Arm] 103/53 L Pulse Oximetry 96 96 Oxygen Delivery Me thod Room Air Room Air Oxygen Flow Rate 06/21/24 11:27 Temperature 98.2 F Pulse Rate [Pulse Oximeter] 66 Respiratory Rate 16 Blood Pressure [Le ft Arm] 108/52 L Blood Pressure [Ri ght Arm] Pulse Oximetry 96 Oxygen Delivery Me thod Room Air Oxygen Flow Rate Labs Labs: Laboratory Results - last 24 hr 06/21/24 06:08 WBC 10.07 RBC 2.46 L Hgb 8.2 L Hct 25.4 L MCV 103 H MCH 33 MCHC 32 RDW Coeff of Latonya 14.8 Plt Count 116 L Neut % (Auto) 75.2 H Lymph % (Auto) 13.9 L [place] % (Auto) 6.2 Eos % (Auto) 4.0 Baso % (Auto) 0.4 Neut # (Auto) 7.60 H Lymph # (Auto) 1.40 [place] # (Auto) 0.60 Eos # (Auto) 0.40 Baso # (Auto) 0.04 Abs Immat Gran (auto) 0.03 Imm/Tot Granulo (auto) 0.3 Sodium 138 Potassium 3.4 L Chloride 105 Carbon Dioxide 31 Anion Gap 2 L BUN 11 Creatinine 0.6 Estimated Creat Clear 38.75 Estimated GFR 91 Glucose 102 Calcium 8.7
[2024-06-21] MEDS: POTASSIUM BICARB 25 MEQ EFFERVESCENT TAB PO (13:49)
--- NOTE | 2024-06-21 14:22 | PC.NURSE ---
End of Shift: Patient pleasant and cooperative. Patient vitally stable, lungs clear, BS WNL, IV SL and intact. Patient reports no pain, tylenol given once, active ice applied to right hip. Patient 2 assist/walker, and has been up chair all shift. Patient right hip dressing C/D/I, pannus redness cleaned and nystatin applied. Patient tolerating regular diet and incontinent of bowel and bladder. Patient has had 2 BMs.
[2024-06-21] MEDS: ATORVASTATIN CALCIUM 40 MG TABLET 80 MG PO (18:47)
--- NOTE | 2024-06-21 19:09 | PC.NURSE ---
: The patient is alert and orientated, although seems confused when asked to complete a task and needs lots of direction when getting up out of the chair and to ambulate. The patient reports that she feels weak and is pale... anemia is noted in her labs. aware. Incontinent of Urine and BM. Noted to have poor endurance when ambulating. The patient gets fatigued very quickly and needs to take breaks when ambulating to the BR, noted to be slow and deliberate and does not fully pickling tank operator her R leg to ambulate. Ax2 w/ GB and RW. 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 Call light within reach. Elle KRUGER BSN
[2024-06-22] VITALS (15 sets, daily range): BP systolic 82–113; BP diastolic 48–89; PULSE 68–79; RESP 14–18; TEMP 36.2–36.9; O2SAT 95–100
[2024-06-22] MEDS: OMEPRAZOLE 20 MG CAPSULE DR 40 MG PO (06:18)
[2024-06-22 06:19] LABS: Basophils Absolute Auto 0.02 K/uL (0.00-0.30); Basophils Percent Auto 0.2 % (0.0-3.0); Eosinophils Absolute Auto 0.42 K/uL (0.00-0.50); Eosinophils Percent Auto 4.1 % (0.0-7.0); Hematocrit 23.7 % (33.0-51.0); Immature Granulocytes Abs Auto 0.04 K/uL (0.00-0.30); Immature Granulocytes Pct Auto 0.4 %; Lymphocytes Percent Auto 15.7 % (20-44); Mean Corpuscular HGB Conc 32 gm/dL (32-36); Mean Corpuscular Hemoglobin 33 pg (26-34); Mean Corpuscular Volume 104 fL (80-100); Monocytes Percent Auto 6.4 % (0.0-11.0); Neutrophils Percent Auto 73.2 % (42.0-72.0); Platelet Count* 137 K/uL (140-440); RDW Coefficient of Variation % 14.9 % (11.5-15.5); Red Blood Count 2.29 m/uL (4.00-5.20); White Blood Count* 10.24 K/uL (4.50-11.00)
[2024-06-22] MEDS: LEVOTHYROXINE 88 MCG TABLET PO (06:19)
[2024-06-22 06:28] LABS: Hemoglobin* 7.6 gm/dL (12.0-16.0); Slide Review Reflex No
[2024-06-22 06:33] LABS: Chloride* 103 mmol/L (96-114)
[2024-06-22 06:34] LABS: Potassium* 3.7 mmol/L (3.6-5.1); Sodium* 137 mmol/L (135-149)
[2024-06-22 06:36] LABS: Creatinine* 0.6 mg/dL (0.5-1.5); Est. Creatinine Clearance* 38.75; Estimated Glomerular Filt Rate 91 ml/min
[2024-06-22 06:37] LABS: Anion Gap 4 mEq/L (7-15); Blood Urea Nitrogen* 16 mg/dL (7-30); Calcium* 8.8 mg/dL (8.4-10.6); Carbon Dioxide* 30 mmol/L (20-32); Glucose* 106 mg/dL (60-115)
--- NOTE | 2024-06-22 06:52 | PC.NURSE ---
Pt alert, oriented to self and vitally stable. Periods of confusion throughout shift. Pt moves via 1-2 assist walker/gait belt, tolerates ok, needs cueing. Pt incontinent of bladder more than continent throughout shift. ?
[2024-06-22] MEDS: FOLIC ACID 1 MG TABLET PO (08:49)
[2024-06-22] MEDS: oxyBUTYnin chloride 5 MG TAB.ER.24 15 MG PO (08:49)
[2024-06-22] MEDS: predniSONE 5 MG TABLET 2.5 MG PO (08:49)
[2024-06-22] MEDS: SENNOSIDES 1 TAB TABLET 2 TAB PO ×2 (08:49→20:46)
[2024-06-22] MEDS: METOPROLOL SUCCINATE (XL) 25 MG TAB 12.5 MG PO (08:50)
[2024-06-22] MEDS: SODIUM CHLORIDE 0.9 % (FLUSH) 10 ML SYRINGE 5 ML IVF ×2 (08:50→20:47)
[2024-06-22] MEDS: HYDROXYCHLOROQUINE 200 MG TABLET PO (08:50)
[2024-06-22] MEDS: RIVAROXABAN 10 MG TABLET PO (08:50)
--- NOTE | 2024-06-22 10:44 | P.IMPN_ITS ---
Progress Note: A&P Assessment and plan (1) Closed right hip fracture: Problem details: - 06/18/2024: Displaced right femoral neck fracture s/p fall from standing state - s/p right hip bipolar arthroplasty 06/18/[address] Calvo. - PT and OT following; will need SNF upon discharge (lives in the independent living setting at [facility]) Status: Acute (2) Postoperative anemia due to acute blood loss: Problem details: - preop hemoglobin 12.1, estimated blood loss 300 mL during surgery, postop hemoglobin 9.4, with ecchymosis about the left hip - 06/20: Hgb 8.0 - no evidence of acute bleeding, normal BUN - 06/22: Hgb 7.6 with pre-syncope during PT, amenable to 1U PRBCs after discussion with patient and daughter Status: Acute (3) Fever: Problem details: - T 100.9 on 06/20: reassuring exam, repeat temperature wnl - CXR without acute findings, + bacteriuria. Culture pending, will treat empirically with Ceftriaxone (h/o rash with Amoxicillin per Epic chart), d/c'd 06/21 after cx negative - afebrile since 06/20 Status: Acute (4) Seronegative rheumatoid arthritis: Problem details: - 06/18/2024: Single dose of hydrocortisone 100 mg IV upon admission - postoperatively, continuing prednisone 2.5 mg daily and hydroxychloroquine. Holding methotrexate Status: Acute (5) Coronary artery disease: Problem details: - h/o AMI and RCA stent 2009 Status: Acute (6) Intertrigo: Problem details: - Right inguinal region; nystatin power verses barrier application; dry clot application to keep area clean and dry. Status: Acute Plan - per above (transfusion) - SNF tomorrow if remains medically appropraite for d/c Subjective Date Seen: 06/22/24 Interval history: Christina was admitted to the hospital on 06/18 for a R femoral neck fracture s/p ground level fall at home. She is s/p a R bipolar hemiarthroplasty with Dr. Calvo of Orthopedic Surgery on 06/18/24. Postoperatively, has had lower BPs, asymptomatic until this morning (presyncopal with PT). Hgb slowly trending downward (this morning 7.6); after discussion with patient and daughter, will proceed with transfusion of 1U PRBCs Working with therapies, has a SNF bed at [facility] for tomorrow. Exam Narrative: Exam Narrative: GEN: Alert HEENT: + conjunctival pallor, EOMIs bilaterally CV: RRR, + systolic murmur R: Decreased bibasilar breath sounds, no wheezing Ext: R hip incision w/o evidence of infection, bruising is mild/stable Skin: No other concerning skin lesions or rashes on exposed skin Neuro: Nonfocal, no tremor Psych: MCI without agitation Const: Vital Signs, click to edit/add: Vital Signs - 24 hr 06/21/24 11:27 06/21/24 15:00 06/21/24 15:45 Temperature 98.2 F 98.7 F Pulse Rate [Pulse Oximeter] 66 75 Respiratory Rate 16 18 18 Blood Pressure [Le ft Arm] 108/52 L 109/55 L Blood Pressure [Ri ght Arm] Pulse Oximetry 96 95 96 Oxygen Delivery Me thod Room Air Room Air Room Air 06/21/24 19:00 06/21/24 23:00 06/21/24 23:00 Temperature 97.8 F 98.8 F Pulse Rate [Pulse Oximeter] 74 75 Respiratory Rate 18 16 Blood Pressure [Le ft Arm] 111/52 L 109/55 L Blood Pressure [Ri ght Arm] Pulse Oximetry 100 96 96 Oxygen Delivery Me thod Room Air Room Air Room Air 06/21/24 23:00 06/22/24 02:22 06/22/24 08:35 Temperature 98.2 F Pulse Rate [Pulse Oximeter] 75 71 68 Respiratory Rate 16 16 16 Blood Pressure [Le ft Arm] Blood Pressure [Ri ght Arm] 111/52 L Pulse Oximetry 98 Oxygen Delivery Me thod Room Air 06/22/24 08:35 06/22/24 08:35 Temperature 98.5 F Pulse Rate [Pulse Oximeter] 68 Respiratory Rate 16 16 Blood Pressure [Le ft Arm] 102/53 L Blood Pressure [Ri ght Arm] 98/52 L Pulse Oximetry 95 95 Oxygen Delivery Me thod Room Air Room Air Labs Labs: Laboratory Results - last 24 hr 06/22/24 06/22/24 04:00 06:10 WBC 10.24 RBC 2.29 L Hgb 7.6 L* Hct 23.7 L MCV 104 H MCH 33 MCHC 32 RDW Coeff of Latonya 14.9 Plt Count 137 L Neut % (Auto) 73.2 H Lymph % (Auto) 15.7 L [place] % (Auto) 6.4 Eos % (Auto) 4.1 Baso % (Auto) 0.2 Neut # (Auto) 7.50 H Lymph # (Auto) 1.60 [place] # (Auto) 0.70 Eos # (Auto) 0.42 Baso # (Auto) 0.02 Abs Immat Gran (auto) 0.04 Imm/Tot Granulo (auto) 0.4 Sodium 137 Potassium 3.7 Chloride 103 Carbon Dioxide 30 Anion Gap 4 L BUN 16 Creatinine 0.6 Estimated Creat Clear 38.75 Estimated GFR 91 Glucose 106 Calcium 8.8
[2024-06-22] MEDS: polyethylene glycoL 3350 17 GM PACK PO (11:37)
--- NOTE | 2024-06-22 12:26 | PC.SOCIAL ---
Addendum entered and electronically signed by TIMA Walton 06/22/24 16:49: Discharge planning: Pre-admission screening was completed today and secure emailed to [facility] at [facility]. [id number]. Social work to follow-up as needed. Addendum entered and electronically signed by TIMA Walton 06/22/24 14:23: Discharge planning: [facility] was notified of the transportation time for tomorrow(9:45-10:30am). Social work to follow-up as needed. Addendum entered and electronically signed by LUIS Sloan Student Forklift Truck Mechanic 06/22/24 14:19: chamber worker discussed discharge plan with pt's daughter, Lilibeth over the phone. Lilibeth is in agreement with plan. Original Note: Discharge planning: Pt will be discharging to [facility] tomorrow for short-term rehab. Pt will be transporting by non-emergent EMS which will be covered by insurance since the pt had a fall with a hip fracture. EMS is scheduled to pick the pt up between 9:45-10:30am. Pt needs to be to [facility] by no later than 1pm. chamber worker did hear back from [facility]lette at [facility] that the pt's prior authorization with [employer] was approved with them for admission tomorrow. Social work to follow-up as needed.
[2024-06-22 18:17] LABS: Hemoglobin* 9.3 gm/dL (12.0-16.0)
[2024-06-22] MEDS: ATORVASTATIN CALCIUM 40 MG TABLET 80 MG PO (18:29)
--- NOTE | 2024-06-22 19:09 | PC.NURSE ---
Nursing Care Hours: [id number] Pt this shift calm and cooperative, alert and oriented with occasional forgetfulness. ?Hypotensive, pt pale and cool, c/o feeling weak and tired. ?Blood transfusion ordered for symptomatic critical anemia. ?Consent signed. ?No symptoms reported before, during, or after infusion. ?IV began leaking during infusion, new IV placed in L FA. Old L AC IV site has medium sized bruising. Pt intermittently hypotensive without symptoms post transfusion.?Bruise on R hip light blue. ?No reports of pain. ?PRN MiraLAX and scheduled senna given for no BM in 5 days. ?BS active. ?Open area to R pannus/groin area. ?Interdry applied. Pt able to walk Ax1 from chair to bathroom without difficultly since transfusion. ?? ?
[2024-06-22] MEDS: NYSTATIN POWDER 1 APPLIC TOPICAL (20:46)
[2024-06-23 03:00] VITALS: BP 113/59; PULSE 69; RESP 18; TEMP 36.9; O2SAT 98
[2024-06-23] MEDS: LEVOTHYROXINE 88 MCG TABLET PO (06:37)
[2024-06-23] MEDS: OMEPRAZOLE 20 MG CAPSULE DR 40 MG PO (06:37)
--- NOTE | 2024-06-23 06:49 | PC.NURSE ---
Pt alert and oriented throughout shift, with some periods of confusion throughout shift. Pt is vitally stable. Pt manuel area cleaned/dried, area was raw and sore per pt, nystatin and intradry applied. ?Pt incontinent of bladder more than continent throughout shift. Pt moves via 1a walker and gait belt. Pt needed cues throughout shift. ?
[2024-06-23 07:04] LABS: Basophils Absolute Auto 0.02 K/uL (0.00-0.30); Basophils Percent Auto 0.2 % (0.0-3.0); Eosinophils Percent Auto 4.2 % (0.0-7.0); Hematocrit 27.1 % (33.0-51.0); Hemoglobin* 8.9 gm/dL (12.0-16.0); Immature Granulocytes Abs Auto 0.05 K/uL (0.00-0.30); Immature Granulocytes Pct Auto 0.5 %; Lymphocytes Percent Auto 19.8 % (20-44); Mean Corpuscular HGB Conc 33 gm/dL (32-36); Mean Corpuscular Hemoglobin 32 pg (26-34); Mean Corpuscular Volume 99 fL (80-100); Monocytes Percent Auto 8.7 % (0.0-11.0); Neutrophils Absolute Auto 6.29 K/uL (1.7-7.0); Neutrophils Percent Auto 66.6 % (42.0-72.0); Platelet Count* 148 K/uL (140-440); RDW Coefficient of Variation % 16.8 % (11.5-15.5); Red Blood Count 2.75 m/uL (4.00-5.20); White Blood Count* 9.45 K/uL (4.50-11.00)
[2024-06-23 07:06] LABS: Slide Review Reflex No
[2024-06-23 07:22] LABS: Chloride* 102 mmol/L (96-114); Potassium* 3.1 mmol/L (3.6-5.1); Sodium* 135 mmol/L (135-149)
[2024-06-23 07:25] LABS: Anion Gap 7 mEq/L (7-15); Blood Urea Nitrogen* 18 mg/dL (7-30); Carbon Dioxide* 26 mmol/L (20-32); Creatinine* 0.5 mg/dL (0.5-1.5); Est. Creatinine Clearance* 38.75; Estimated Glomerular Filt Rate 95 ml/min
[2024-06-23 07:26] LABS: Calcium* 8.3 mg/dL (8.4-10.6)
[2024-06-23 07:42] LABS: Glucose* 110 mg/dL (60-115)
[2024-06-23 08:15] VITALS: BP 110/63; PULSE 76; RESP 18; TEMP 37.1; O2SAT 97
--- NOTE | 2024-06-23 09:05 | PM.DS1 ---
DS: Providers Provider Date Seen: 06/23/24 Date of admission: 06/18/24 13:44 Primary care physician: Not a Local Provider Admitting Clinician: Todd Arriaga MD Consults: OT, PT, SW, Orthopedic Surgery Attending Physician on discharge: Jen Mack MD Date of Discharge: 06/23/24 DS: Diagnosis Discharge Diagnosis (1) Closed right hip fracture: Status: Acute Problem details: - 06/18/2024: Displaced right femoral neck fracture s/p fall from standing state - s/p right hip bipolar arthroplasty 06/18/[address] Calvo - PT and OT followed during stay; medically appropriate for SNF upon d/c (2) Postoperative anemia due to acute blood loss: Status: Acute Problem details: - preop hemoglobin 12.1, estimated blood loss 300 mL during surgery, postop hemoglobin 9.4, + postoperative ecchymosis about the left hip - 06/20: Hgb 8.0 - no evidence of acute bleeding, normal BUN - 06/22: Hgb 7.6 with pre-syncope during PT, amenable to 1U PRBCs after discussion with patient and daughter - 06/23: Hemodynamically stable, Hgb 8.9 (3) Fever: Status: Acute Problem details: - T 100.9 on 06/20: reassuring exam, repeat temperature wnl - CXR without acute findings, + bacteriuria. Culture pending, will treat empirically with Ceftriaxone (h/o rash with Amoxicillin per Epic chart), d/c'd 06/21 after cx negative - afebrile since 06/20 (4) Seronegative rheumatoid arthritis: Status: Acute Problem details: - 06/18/2024: Single dose of hydrocortisone 100 mg IV upon admission - postoperatively, continuing prednisone 2.5 mg daily and hydroxychloroquine. Held methotrexate during stay, will restart next week (5) Coronary artery disease: Status: Acute Problem details: - h/o AMI and RCA stent 2009, continued home medications (6) Intertrigo: Status: Acute Problem details: - Right inguinal region; nystatin power verses barrier application; dry clot application to keep area clean and dry DS: Summary Hospital Course Hospital Course: Christina was admitted to the hospital on 06/18 for a R femoral neck fracture s/p ground level fall at home. She is post R bipolar hemiarthroplasty with Dr. Calvo of Orthopedic Surgery on 06/18/24. Postoperatively, had lower BPs without symptoms until 06/22 (dizziness during PT). Hgb at that time 7.6 (was 9.2 postoperatively), amenable to 1U PRBCs. Hemoglobin improved to 8.9 upon discharge, patient had no evidence of acute bleeding. Comorbidities with details above. Christina was medically appropriate for SNF placement 06/23/24. Status at Discharge Functional status at discharge: uses cane/walker Overall status at discharge: patient is progressing back to baseline Time Spent with Patient Time attestation: Total time spent providing and/or coordinating discharge services: Time spent: Greater than 30 minutes Specific discharge activities: Medication management Exam Narrative: Exam Narrative: GEN: Alert and nontoxic HEENT: + conjunctival pallor, EOMIs bilaterally CV: RRR, + systolic murmur without concerning features, stable R: No wheezing, air movement adequate Ext: R hip incision w/o evidence of infection, bruising is mild and unchanged Skin: No other concerning skin lesions or rashes on exposed skin Neuro: Nonfocal, no tremor Psych: MCI noted, no agitation Const: Vital Signs, click to edit/add: Vital Signs - 24 hr 06/22/24 11:00 06/22/24 13:02 06/22/24 13:39 Temperature 97.2 F L 98.1 F 98.2 F Pulse Rate 79 72 Pulse Rate [Pulse Oximeter] 74 Respiratory Rate 14 14 15 Blood Pressure 96/67 104/48 L Blood Pressure [Le ft Arm] 113/49 L Blood Pressure [Ri ght Arm] Pulse Oximetry 99 96 100 Oxygen Delivery Me thod Room Air Room Air Room Air Oxygen Flow Rate 06/22/24 14:20 06/22/24 14:28 06/22/24 14:43 Temperature 97.4 F L 98 F Pulse Rate 71 68 68 Pulse Rate [Pulse Oximeter] Respiratory Rate 14 14 Blood Pressure 104/54 L 82/53 L 108/49 L Blood Pressure [Le ft Arm] Blood Pressure [Ri ght Arm] Pulse Oximetry 100 100 100 Oxygen Delivery Me thod Room Air Room Air Oxygen Flow Rate 06/22/24 14:58 06/22/24 15:00 06/22/24 15:00 Temperature Pulse Rate 73 Pulse Rate [Pulse Oximeter] 74 Respiratory Rate 16 14 Blood Pressure 92/54 L Blood Pressure [Le ft Arm] Blood Pressure [Ri ght Arm] Pulse Oximetry 100 100 Oxygen Delivery Me thod Room Air Room Air Oxygen Flow Rate 06/22/24 15:00 06/22/24 15:50 06/22/24 19:55 Temperature 98.5 F 98.2 F Pulse Rate 68 Pulse Rate [Pulse Oximeter] 72 68 Respiratory Rate 16 16 Blood Pressure 110/89 Blood Pressure [Le ft Arm] Blood Pressure [Ri ght Arm] 92/54 L 99/49 L Pulse Oximetry 100 96 100 Oxygen Delivery Me thod Room Air Room Air Oxygen Flow Rate 0 06/22/24 21:07 06/22/24 22:46 06/22/24 23:31 Temperature 98.0 F Pulse Rate Pulse Rate [Pulse Oximeter] 68 74 Respiratory Rate 18 18 18 Blood Pressure Blood Pressure [Le ft Arm] Blood Pressure [Ri ght Arm] 107/51 L Pulse Oximetry 100 95 Oxygen Delivery Me thod Room Air Room Air Oxygen Flow Rate 0 06/23/24 03:00 Temperature 98.4 F Pulse Rate Pulse Rate [Pulse Oximeter] 69 Respiratory Rate 18 Blood Pressure Blood Pressure [Le ft Arm] Blood Pressure [Ri ght Arm] 113/59 L Pulse Oximetry 98 Oxygen Delivery Me thod Room Air Oxygen Flow Rate 0 DS: Data Data Completed and Pending Labs on day of discharge: Labs from last 24 hours 06/23/24 06/22/24 06/22/24 06:12 18:05 06:10 WBC 9.45 RBC 2.75 L Hgb 8.9 L 9.3 L Hct 27.1 L MCV 99 MCH 32 MCHC 33 RDW Coeff of Latonya 16.8 H Plt Count 148 Neut % (Auto) 66.6 Lymph % (Auto) 19.8 L Winn % (Auto) 8.7 Eos % (Auto) 4.2 Baso % (Auto) 0.2 Neut # (Auto) 6.29 Lymph # (Auto) 1.90 Winn # (Auto) 0.80 Eos # (Auto) 0.40 Baso # (Auto) 0.02 Abs Immat Gran (auto) 0.05 Imm/Tot Granulo (auto) 0.5 Sodium 135 Potassium 3.1 L Chloride 102 Carbon Dioxide 26 Anion Gap 7 BUN 18 Creatinine 0.5 Estimated Creat Clear 38.75 Estimated GFR 95 Glucose 110 Calcium 8.3 L Blood Type O Positive Antibody Screen NEGATIVE Crossmatch (AHG) See Detail Discharge Plan Discharge Disposition: Xfer [facility] Date of Admission: 06/18/24 13:44 Attending Provider on Discharge: Jen Mack Primary Care Provider: Provider,Not a Local Discharge Medications: New acetaminophen 325 mg Tablet 650 mg PO Q6H PRN (Reason: As needed for fever, headache, or minor pain) Qty: 30 0RF Rx Instructions: prn dose in addition to scheduled APAP oxycodone 5 mg Tablet 2.5 mg PO Q4H PRN (Reason: Pain) Qty: 20 0RF Continued ascorbic acid (vitamin C) 500 mg capsule 1,000 mg PO BID acetaminophen [Tylenol] 325 mg tablet 650 mg PO BID aspirin [Adult Aspirin Regimen] 81 mg tablet,delayed release (DR/EC) 81 mg PO BID atorvastatin 80 mg tablet 80 mg PO DAILY folic acid 1 mg tablet 2 mg PO DAILY hydroxychloroquine 200 mg tablet 200 mg PO DAILY levothyroxine [Euthyrox] 88 mcg tablet 88 mcg PO DAILY lisinopril 2.5 mg tablet 2.5 mg PO DAILY nitroglycerin 0.4 mg tablet, sublingual 0.4 mg sublingual Q5-15M PRN Rx Instructions: do not exceed 3 doses per episode nystatin [Nyamyc] 100,000 unit/gram powder 1 applic topical BID PRN oxybutynin chloride 15 mg tablet extended release 24hr 15 mg PO DAILY pantoprazole 40 mg tablet,delayed release (DR/EC) 40 mg PO DAILY prednisone 2.5 mg tablet 2.5 mg PO DAILY cholecalciferol (vitamin D3) 25 mcg (1,000 unit) capsule 25 mcg PO DAILY alendronate 70 mg tablet 70 mg PO .FRIDAY methotrexate sodium 2.5 mg tablet 15 mg PO .FRIDAY metoprolol succinate 25 mg tablet extended release 24 hr 12.5 mg PO DAILY Discharge Orders: Discharge Order (Routine); Ordered 06/23/24 Ordered By: Jen Mack Activity Level: Activity as Tolerated, Weight Bearing as Tolerated, Use Cane and Use Walker Discharge Diet: Regular Follow Up Appointments: Provider,Not a Local [Primary Care Provider] - Forms: MyHealth Info Instructions Discharge Comments: staff: please make appt for Christina with Dr Calvo in 4 weeks; follow up with [facility] once discharged from SNF. Admit to: SNF Discharge Potential: Good Length of Stay: <30 days Can use facility standing orders?: Yes Code Status: DNR/DNI TEDs: N/A Rehab Potential: Good Therapy: Physical Therapy and Occupational Therapy Therapy Orders: Evaluate and Treat, Gait Training, ADL and Total Hip Precautions Therapy Orders Additional Information: anterior hip precautions Oxygen: No Urinary Catheter: No Lab Orders: CBC 10 days to recheck anemia (Hgb 8.9 on 06/23) Orders are good >30 days: Yes Signature: Jen Mack MD
[2024-06-23] MEDS: RIVAROXABAN 10 MG TABLET PO (09:08)
[2024-06-23] MEDS: FOLIC ACID 1 MG TABLET PO (09:08)
[2024-06-23] MEDS: predniSONE 5 MG TABLET 2.5 MG PO (09:08)
[2024-06-23] MEDS: METOPROLOL SUCCINATE (XL) 25 MG TAB 12.5 MG PO (09:08)
[2024-06-23] MEDS: oxyBUTYnin chloride 5 MG TAB.ER.24 15 MG PO (09:08)
[2024-06-23] MEDS: HYDROXYCHLOROQUINE 200 MG TABLET PO (09:08)
[2024-06-23] MEDS: SODIUM CHLORIDE 0.9 % (FLUSH) 10 ML SYRINGE 5 ML IVF (09:09)
[2024-06-23] MEDS: ACETAMINOPHEN 325 MG TABLET 650 MG PO (10:01)
--- NOTE | 2024-06-23 10:16 | PC.SOCIAL ---
Social work digital intern gave pt a copy of the medicare rights form and discussed it with her prior to discharge.
--- NOTE | 2024-06-23 10:48 | PC.NURSE ---
Pt up with assist of 1, gait belt, and walker. Tylenol for pain post PT per MAR. IV DC'd, cath tip intact. Dc to [facility] for rehab. Nurse to Nurse given to Brionna. DC @ [phone] with EMS, notified of time of transport via telephone call from contract technical writer.
--- NOTE | 2024-07-01 14:03 | P.ANES_ITS ---
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
--- NOTE | 2024-07-01 14:03 | W.ANESCHARGE ---
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
== END 2024-06-23 10:25 | DRG 522 ==
LOC: ED 12:57 → MEDSURG 13:39
PROVIDERS: Family Medicine; Orthopaedic Surgery Sports Medicine; Admitting Provider Internal Medicine; Emergency Provider Family Medicine; Visit Provider Internal Medicine
PROC: 0SRR019 Replacement of Right Hip Joint, Femoral Surface with Metal Synthetic Substitute, Cemented, Open Approach (ICD-10-PCS; principal; 2024-06-18 16:30)
DX: S72.031A Displaced midcervical fracture of right femur, initial encounter for closed fracture (principal); D62 Acute posthemorrhagic anemia; R50.9 Fever, unspecified; Z59.41 Food insecurity; W01.0XXA Fall on same level from slipping, tripping and stumbling without subsequent striking against object, initial encounter; Y92.009 Unspecified place in unspecified non-institutional (private) residence as the place of occurrence of the external cause; G89.18 Other acute postprocedural pain; L30.4 Erythema intertrigo; M06.00 Rheumatoid arthritis without rheumatoid factor, unspecified site; I10 Essential (primary) hypertension; R32 Unspecified urinary incontinence; K21.9 Gastro-esophageal reflux disease without esophagitis; E03.9 Hypothyroidism, unspecified; I25.10 Atherosclerotic heart disease of native coronary artery without angina pectoris; Z95.5 Presence of coronary angioplasty implant and graft; Z79.631 Long term (current) use of antimetabolite agent; D69.6 Thrombocytopenia, unspecified; E78.5 Hyperlipidemia, unspecified
CPT/HCPCS: 01214; 36415; 36430; 51701; 64450; 71045; 72170; 73501; 73552; 76000; 76942; 80048; 81001; 81003; 84443; 84484; 85018; 85025; 85027; 86850; 86900; 86901; 86922; 87086; 93005; 97110; 97116; 97161; 97165; 97530; 97535; 99284; 99285; A9270; C1713; C1776; J0690; J0696; J1100; J1720; J2250; J2371; J2405; J2704; J2795; J3010; J3480; J3490; J7030; J7120; J7512; P9016

== ENCOUNTER 2024-06-23 10:20 | Outpatient (CLI) | payer OTHER, SELFPAY | END 2024-06-23 10:21 | disposition home or self-care (01) | LOC: AMB 06-28 23:00 | PROVIDERS: Visit Provider Family Medicine | DX: R53.1 Weakness (principal); S72.001A Fracture of unspecified part of neck of right femur, initial encounter for closed fracture | CPT/HCPCS: A0425; A0428 ==